=== PATIENT | male | born 1985 | race American Indian/Alaskan Native ===

== ENCOUNTER 2018-08-21 08:14 | Inpatient (IN) | payer SELFPAY ==
[2018-08-21] MEDS ORDERED: MORPHINE IV ONE ×2 (08:43→10:09)
[2018-08-21] MEDS ORDERED: NACL 0.9% 1000 ML 1,000 ML IV ONE ×2 (08:43→11:45)
--- NOTE | 2018-08-21 08:55 | Emergency Department Report ---
HPI - General Chief Complaint: Abdominal Pain Time Seen by Provider: 08/21/18 08:32 - HPI HPI: 32-year-old -[place] male presents to the emergency department with complaint of lower abdominal pain and testicular pain, worse on the right. The symptoms began last night but went away, but the patient woke up this morning and the symptoms have returned and intensified. He says it feels like he has been kicked in the testicles, but he does deny any trauma or injury. He also noticed a significant amount of blood in the urine and says that his stream has also been affected. He denies any fever, back pain, diarrhea or constipation. He denies any past medical history. He has not taken anything for his symptoms prior to presentation today. ED Past Medical Hx - Past Medical History Previous Medical History?: No - Surgical History Past Surgical History?: No - Social History Smoking Status: Current Every Day Smoker - Medications Home Medications: Home Medications Medication Instructions Recorded Confirmed Last Taken Type No Known Home Medications [No 08/21/18 08/21/18 Unknown History Reported Home Medications] ED Review of Systems ROS: Stated complaint: STOMACH PAIN Other details as noted in HPI Comment: All other systems reviewed and negative Constitutional: denies: chills, fever Eyes: denies: eye pain, vision change ENT: denies: ear pain, throat pain Respiratory: denies: cough, shortness of breath Cardiovascular: denies: chest pain, palpitations Gastrointestinal: abdominal pain. denies: diarrhea, constipation Genitourinary: hematuria, testicular pain Musculoskeletal: denies: back pain, arthralgia Skin: denies: rash, lesions Neurological: denies: headache, weakness Physical Exam - Physical Exam Vital Signs: Vital Signs 08/21/18 08:16 Temperature 98 F Pulse Rate 83 Respiratory 18 Rate Blood Pressure 133/90 O2 Sat by Pulse 98 Oximetry Physical Exam: GENERAL: The patient is well-developed well-nourished. HENT: Normocephalic. Atraumatic. Patient has moist mucous membranes. EYES: Extraocular motions are intact. Pupils equal reactive to light bilaterally. NECK: Supple. Trachea is midline. CHEST/LUNGS: Clear to auscultation. There is no respiratory distress noted. HEART/CARDIOVASCULAR: Regular. There is no tachycardia. There is no murmur. ABDOMEN: Abdomen is soft. Lower abdominal tenderness to palpation. No guarding. Patient has normal bowel sounds. There is no abdominal distention. SKIN: Skin is warm and dry. NEURO: The patient is awake, alert, and oriented. The patient is cooperative. The patient has no focal neurologic deficits. The patient has normal speech. MUSCULOSKELETAL: There is no tenderness or deformity. There is no limitation range of motion. There is no evidence of acute injury. : There is right-sided testicular tenderness to palpation. No palpable hernias. ED Course Vital Signs 08/21/18 08:16 Temperature 98 F Pulse Rate 83 Respiratory 18 Rate Blood Pressure 133/90 O2 Sat by Pulse 98 Oximetry ED Medical Decision Making - Lab Data Result diagrams: 08/21/18 08:36 08/21/18 08:36 - Radiology Data Radiology results: report reviewed Scrotal Ultrasound HISTORY: testicular pain. TECHNIQUE: Grayscale and color Doppler imaging performed. COMPARISON: None FINDINGS: Both testicles are normal in size with normal blood flow. There is a 7 mm extratesticular cyst on the right which demonstrates smooth margins and is anechoic with no internal blood flow. No hydrocele or varicocele identified. IMPRESSION: Small extratesticular cyst on the right. Otherwise unremarkable exam. CT ABDOMEN AND PELVIS WITH CONTRAST HISTORY: Acute generalized abdominal pain, radiating to testicle, hematuria. COMPARISON: Testicular ultrasound from today TECHNIQUE: CT images of the abdomen and pelvis were obtained following administ ration of intravenous contrast. All CT scans at this location are performed using CT dose reduction for ALARA by means of automated exposure control. CONTRAST: 100 ml of intravenous contrast administered. FINDINGS: Lungs/bones: There is minimal left basilar atelectasis with otherwise clear ivan ngs. No acute osseous abnormality or significant degenerative change. Abdomen/pelvis: There is a tiny cyst in the dome of the liver. The liver otherwise appears enlarged but unremarkable. Gallbladder is absent. There is slight intrahepatic biliary ductal prominence which can be seen postcholecystectomy. The spleen with splenule, pancreas, adrenals, kidneys, and proximal GI tract appear unremarkable. Urinary bladder and prostate are unremarkable except for dystrophic calcification in the prostate and small phleboliths in the pelvis. No pelvic free fluid. The appendix and terminal ileum appear normal. The descending colon has a collapsed appearance with no significant surrounding inflammatory stranding identified. IMPRESSION: 1. No acute abnormality identified. No radiopaque urinary stone disease. 2. Incidental findings as above. - Medical Decision Making This patient presents to the emergency department with a complaint of pain to the testicles, worse on the right, as well as the lower abdomen. He also complained of some hematuria. Urinalysis does confirm significant hematuria and he may have a very mild urinary tract infection with 18 white blood cells. Otherwise his blood work and labs have been unremarkable. A testicular ultrasound was done that does not show any signs of any torsion or any significant abnormality other than a small right testicular cyst. A CT scan of the abdomen and pelvis with IV contrast was also done that does not show any acute pelvic or abdominal pathology. The patient received 2 rounds of morphine, Toradol, IV fluid resuscitation and has not had any improvement in his discomfort. The patient is tearful and complaining of the patient will be admitted to the hospital for intractable abdominal pain and has been accepted for admission by the hospitalist, Dr. Hrone. - Differential Diagnosis testicular torsion, nephrolithiasis, pyelonephritis, colitis, diverticuliti Critical Care Time: No Critical care attestation.: If time is entered above; I have spent that time in minutes in the direct care of this critically ill patient, excluding procedure time. ED Disposition Clinical Impression: Intractable abdominal pain, Testicular pain, right Hematuria Qualifiers: Hematuria type: gross Qualified Code(s): R31.0 - Gross hematuria UTI (urinary tract infection) Qualifiers: Urinary tract infection type: acute cystitis Hematuria presence: with hematuria Qualified Code(s): N30.01 - Acute cystitis with hematuria Disposition: OP ADMIT IP TO THIS HOSP Is pt being admited?: Yes Condition: Fair Time of Disposition: 15:04
[2018-08-21 08:59] LABS: Hemoglobin 12.6 gm/dl (11.8-15.2); Mean Corpuscular HGB Conc 32 % (32-34); Mean Corpuscular Volume 91 fl (84-94); Platelet Count 218 K/mm3 (140-440); Red Blood Count 4.27 M/mm3 (3.65-5.03); Red Cell Distribution Width 13.7 % (13.2-15.2)
[2018-08-21 09:08] LABS: Bilirubin,Urine NEG (Negative); Blood,Urine MOD (Negative); Color,Urine Red (Yellow); Urobilinogen,Urine < 2.0 mg/dL (<2.0)
[2018-08-21 09:24] LABS: Alanine Aminotransferase 12 units/L (7-56); Albumin 4.1 g/dL (3.9-5); BUN/Creatinine Ratio 9; Blood Urea Nitrogen 10 mg/dL (9-20); Calcium 9.2 mg/dL (8.4-10.2); Hemolysis Index 9
[2018-08-21 09:25] LABS: RBC,Urine > 182.0 /HPF (0.0-6.0)
--- NOTE | 2018-08-21 10:07 | Ultrasound Report ---
Scrotal Ultrasound HISTORY: testicular pain. TECHNIQUE: Grayscale and color Doppler imaging performed. COMPARISON: None FINDINGS: Both testicles are normal in size with normal blood flow. There is a 7 mm extratesticular cyst on the right which demonstrates smooth margins and is anechoic with no internal blood flow. No h ydrocele or varicocele identified. IMPRESSION: Small extratesticular cyst on the right. Otherwise unremarkable exam. Signer Name: Reji Sanford MD Signed: 08/21/2018 10:03 AM Workstation Name: [id number]
[2018-08-21] MEDS ORDERED: ZOFRAN ONE (10:15)
[2018-08-21] MEDS ORDERED: ZOFRAN IV ONE (10:19)
[2018-08-21] MEDS ORDERED: TORADOL IV ONE (10:42)
--- NOTE | 2018-08-21 10:56 | Cat Scan Report ---
CT ABDOMEN AND PELVIS WITH CONTRAST HISTORY: Acute generalized abdominal pain, radiating to testicle, hematuria. COMPARISON: Testicular ultrasound from today TECHNIQUE: CT images of the abdomen and pelvis were obtained following administration of intravenous contrast. All CT scans at this location are performed using CT dose reduction for ALARA by means of automated exposure control. CONTRAST: 100 ml of intravenous contrast administered. FINDINGS: Lungs/bones: There is minimal left basilar atelectasis with otherwise clear lungs. No acute osseous abnormality or significant degenerative change. Abdomen/pelvis: There is a tiny cyst in the dome of the liver. The liver otherwise appears enlarged but unremarkable. Gallbladder is absent. There is slight intrahepatic biliary ductal prominence which can be seen postcholecystectomy. The spleen with splenule, pancreas, adrenals, kidneys, and proximal GI tract appear unremarkable. Urinary bladder and prostate are unremarkable except for dystrophic calcification in the prostate and small phleboliths in the pelvis. No pelvic free fluid. The appendix and terminal ileum appear normal . The descending colon has a collapsed appearance with no significant surrounding inflammatory strand ing identified. IMPRESSION: 1. No acute abnormality identified. No radiopaque urinary stone disease. 2. Incidental findings as above. Signer Name: Reji Sanford MD Signed: 08/21/2018 10:52 AM Workstation Name: [id number]
[2018-08-21 11:02] LABS: Platelet Estimate Consistent w Auto; RBC Morphology Normal; Total Cells Counted 100
[2018-08-21] MEDS ORDERED: ROCEPHIN/NS 1 GM/50 ML 1 GM/50 ML BAG IV ONE (11:32)
[2018-08-21] MEDS ORDERED: ZOFRAN IV PRN ×2 (13:31→22:18)
[2018-08-21] MEDS: DILAUDID IV PRN ×3 (14:13→21:49)
--- NOTE | 2018-08-21 22:11 | History and Physical Report ---
History of Present Illness Date of examination: 08/21/18 Date of admission: 08/21/18 11:32 Chief complaint: Severe abdominal pain and right testicle pain for 1 day History of present illness: 32-year-old -[place] male with no significant past medical history presents with a severe lower abdominal pain and right testicular pain since yesterday. Pain is intermittent and sharp. He feels as if somebody K Jose testicles. No trauma. 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 No trauma. No fever or chills. Patient also noticed the blood in the urine and decreased stream of urine. Pain is 10 on a scale of 1-10. Sharp in nature. No exacerbating or relieving factors. Past Medical History Previous Medical History?: No Surgical History Past Surgical History?: No Social History Smoking Status: Current Every Day Smoker Family history Htn - Medications Home Medications: Home Medications Medication Instructions Recorded Confirmed Last Taken Type No Known Home Medications [No 08/21/18 08/21/18 Unknown History Reported Home Medications] Review of Systems ROS: Stated complaint: STOMACH PAIN Other details as noted in HPI Comment: All other systems reviewed and negative Constitutional: denies: chills, fever Eyes: denies: eye pain, vision change ENT: denies: ear pain, throat pain Respiratory: denies: cough, shortness of breath Cardiovascular: denies: chest pain, palpitations Gastrointestinal: abdominal pain. denies: diarrhea, constipation Genitourinary: hematuria, testicular pain Musculoskeletal: denies: back pain, arthralgia Skin: denies: rash, lesions Neurological: denies: headache, weakness Medications and Allergies Allergies Allergy/AdvReac Type Severity Reaction Status Date / Time No Known Allergies Allergy Unverified 08/21/18 08:15 Home Medications Medication Instructions Recorded Confirmed Last Taken Type No Known Home Medications [No 08/21/18 08/21/18 Unknown History Reported Home Medications] Active Meds: Active Medications Hydromorphone HCl (Dilaudid) 1 mg IV Q3H PRN PRN Reason: Pain , Severe (7-10) Last Admin: 08/21/18 21:49 Dose: 1 mg Documented by: Ondansetron HCl (Zofran) 4 mg IV Q3H PRN PRN Reason: Nausea And Vomiting Exam - Constitutional Vitals: Temp Pulse Resp BP Pulse Ox 98.7 F 78 20 127/86 97 07/06/19 12:08 08/21/18 12:08 08/21/18 12:08 08/21/18 12:08 08/21/18 14:29 General appearance: Present: no acute distress, well-nourished - EENT Eyes: Present: PERRL ENT: hearing intact, clear oral mucosa - Neck Neck: Present: supple, normal ROM - Respiratory Respiratory effort: normal Respiratory: bilateral: CTA - Cardiovascular Heart rate: 90 Rhythm: regular Heart Sounds: Present: S1 & S2. Absent: rub, click - Extremities Extremities: no ischemia, pulses intact, pulses symmetrical, No edema Peripheral Pulses: within normal limits - Abdominal General gastrointestinal: Present: soft, non-tender, non-distended, normal bowel sounds Male genitourinary: Present: normal - Integumentary Integumentary: Present: clear, warm, dry - Musculoskeletal Musculoskeletal: gait normal, strength equal bilaterally - Psychiatric Psychiatric: appropriate mood/affect, intact judgment & insight - Neurologic Neurologic: CNII-XII intact, moves all extremities - Allied Health Allied health notes reviewed: nursing, case management Results - Labs CBC & Chem 7: 08/21/18 08:36 08/21/18 08:36 Labs: Laboratory Last Values WBC 3.4 K/mm3 (4.5-11.0) L 08/21/18 08:36 RBC 4.27 M/mm3 (3.65-5.03) 08/21/18 08:36 Hgb 12.6 gm/dl (11.8-15.2) 08/21/18 08:36 Hct 39.0 % (35.5-45.6) 08/21/18 08:36 MCV 91 fl (84-94) 08/21/18 08:36 MCH 30 pg (28-32) 08/21/18 08:36 MCHC 32 % (32-34) 08/21/18 08:36 RDW 13.7 % (13.2-15.2) 08/21/18 08:36 Plt Count 218 K/mm3 (140-440) 08/21/18 08:36 Add Manual Diff Complete 08/21/18 08:36 Total Counted 100 08/21/18 08:36 Seg Neuts % (Manual) 39.0 % (40.0-70.0) L 08/21/18 08:36 0 % 08/21/18 08:36 48.0 % (13.4-35.0) H 08/21/18 08:36 Reactive Lymphs % (Man) 0 % 08/21/18 08:36 5.0 % (0.0-7.3) 08/21/18 08:36 7.0 % (0.0-4.3) H 08/21/18 08:36 1.0 % (0.0-1.8) 08/21/18 08:36 0 % 08/21/18 08:36 0 % 08/21/18 08:36 0 % 08/21/18 08:36 0 % 08/21/18 08:36 Nucleated RBC % Not Reportable 08/21/18 08:36 Seg Neutrophils # Man 1.3 K/mm3 (1.8-7.7) L 08/21/18 08:36 Band Neutrophils # 0.0 K/mm3 08/21/18 08:36 1.6 K/mm3 (1.2-5.4) 08/21/18 08:36 Abs React Lymphs (Man) 0.0 K/mm3 08/21/18 08:36 0.2 K/mm3 (0.0-0.8) 08/21/18 08:36 0.2 K/mm3 (0.0-0.4) 08/21/18 08:36 0.0 K/mm3 (0.0-0.1) 08/21/18 08:36 0.0 K/mm3 08/21/18 08:36 0.0 K/mm3 08/21/18 08:36 0.0 K/mm3 08/21/18 08:36 Blast Cells # 0.0 K/mm3 08/21/18 08:36 WBC Morphology Not Reportable 08/21/18 08:36 Hypersegmented Neuts Not Reportable 08/21/18 08:36 Hyposegmented Neuts Not Reportable 08/21/18 08:36 Hypogranular Neuts Not Reportable 08/21/18 08:36 Not Reportable 08/21/18 08:36 Not Reportable 08/21/18 08:36 Not Reportable 08/21/18 08:36 Not Reportable 08/21/18 08:36 Not Reportable 08/21/18 08:36 Not Reportable 08/21/18 08:36 Consistent w auto 08/21/18 08:36 Not Reportable 08/21/18 08:36 Plt Clumps, EDTA Not Reportable 08/21/18 08:36 Not Reportable 08/21/18 08:36 Not Reportable 08/21/18 08:36 Not Reportable 08/21/18 08:36 Plt Morphology Comment Not Reportable 08/21/18 08:36 RBC Morphology Normal 08/21/18 08:36 Dimorphic RBCs Not Reportable 08/21/18 08:36 Not Reportable 08/21/18 08:36 Not Reportable 08/21/18 08:36 Not Reportable 08/21/18 08:36 Not Reportable 08/21/18 08:36 Not Reportable 08/21/18 08:36 Not Reportable 08/21/18 08:36 Not Reportable 08/21/18 08:36 Not Reportable 08/21/18 08:36 Not Reportable 08/21/18 08:36 Not Reportable 08/21/18 08:36 Not Reportable 08/21/18 08:36 Not Reportable 08/21/18 08:36 Not Reportable 08/21/18 08:36 Not Reportable 08/21/18 08:36 Not Reportable 08/21/18 08:36 Not Reportable 08/21/18 08:36 Not Reportable 08/21/18 08:36 Not Reportable 08/21/18 08:36 Not Reportable 08/21/18 08:36 Acanthocytes (Spur) Not Reportable 08/21/18 08:36 Rouleaux Not Reportable 08/21/18 08:36 Not Reportable 08/21/18 08:36 Not Reportable 08/21/18 08:36 Not Reportable 08/21/18 08:36 Not Reportable 08/21/18 08:36 Hem Pathologist Commnt No 08/21/18 08:36 Sodium 137 mmol/L (137-145) 08/21/18 08:36 Potassium 3.9 mmol/L (3.6-5.0) 08/21/18 08:36 Chloride 102.5 mmol/L (98-107) 08/21/18 08:36 Carbon Dioxide 25 mmol/L (22-30) 08/21/18 08:36 13 mmol/L 08/21/18 08:36 BUN 10 mg/dL (9-20) 08/21/18 08:36 1.1 mg/dL (0.8-1.5) 08/21/18 08:36 Estimated GFR > 60 ml/min 08/21/18 08:36 9 % 08/21/18 08:36 Glucose 93 mg/dL (75-100) 08/21/18 08:36 Calcium 9.2 mg/dL (8.4-10.2) 08/21/18 08:36 0.30 mg/dL (0.1-1.2) 08/21/18 08:36 AST 18 units/L (5-40) 08/21/18 08:36 ALT 12 units/L (7-56) 08/21/18 08:36 96 units/L (35-129) 08/21/18 08:36 6.8 g/dL (6.3-8.2) 08/21/18 08:36 4.1 g/dL (3.9-5) 08/21/18 08:36 1.5 % 08/21/18 08:36 20 units/L (13-60) 08/21/18 08:36 Red (Yellow) 08/21/18 08:31 Cloudy (Clear) 08/21/18 08:31 7.0 (5.0-7.0) 08/21/18 08:31 Ur Specific [place] 1.011 (1.003-1.030) 08/21/18 08:31 100 mg/dl mg/dL (Negative) 08/21/18 08:31 Neg mg/dL (Negative) 08/21/18 08:31 Neg mg/dL (Negative) 08/21/18 08:31 Mod (Negative) 08/21/18 08:31 Pos (Negative) 08/21/18 08:31 Neg (Negative) 08/21/18 08:31 < 2.0 mg/dL (<2.0) 08/21/18 08:31 Ur Leukocyte Esterase Neg (Negative) 08/21/18 08:31 18.0 /HPF (0.0-6.0) H 08/21/18 08:31 > 182.0 /HPF (0.0-6.0) 08/21/18 08:31 Short CBC 08/21/18 Range/Units 08:36 WBC 3.4 L (4.5-11.0) K/mm3 Hgb 12.6 (11.8-15.2) gm/dl Hct 39.0 (35.5-45.6) % Plt Count 218 (140-440) K/mm3 BMP 08/21/18 08:36 Sodium 137 Potassium 3.9 Chloride 102.5 Carbon Dioxide 25 BUN 10 Creatinine 1.1 Glucose 93 Calcium 9.2 Liver Function 08/21/18 Range/Units 08:36 Total Bilirubin 0.30 (0.1-1.2) mg/dL AST 18 (5-40) units/L ALT 12 (7-56) units/L Alkaline Phosphatase 96 (35-129) units/L Albumin 4.1 (3.9-5) g/dL Urine 08/21/18 Range/Units 08:31 Urine Color Red (Yellow) Urine pH 7.0 (5.0-7.0) Ur Specific [place] 1.011 (1.003-1.030) Urine Protein 100 mg/dl (Negative) mg/dL Urine Glucose (UA) Neg (Negative) mg/dL - Imaging and Cardiology CT scan - abdomen: report reviewed Imaging and Cardiology: Testicular ultrasound IMPRESSION: Small extratesticular cyst on the right. Otherwise unremarkable exam. Abdominal CAT scan Urinary bladder and prostate are unremarkable except for dystrophic calcification in the prostate and small phleboliths in the pelvis. No pelvic free fluid. The appendix and terminal ileum appear normal. The descending colon has a collapsed appearance with no significant surrounding inflammatory stranding identified. IMPRESSION: 1. No acute abnormality identified. No radiopaque urinary stone disease. 2. Incidental findings as above. Assessment and Plan Advance Directives: Yes (full code) VTE prophylaxis?: Chemical Plan of care discussed with patient/family: Yes - Patient Problems (1) Acute epididymitis Current Visit: Yes Status: Acute Plan to address problem: Possible epididymitis even the ultrasound is negative Testicle is tender to touch IV Rocephin initiated IV Dilaudid initiated Urology consult requested (2) Hematuria Current Visit: Yes Status: Acute Qualifiers: Hematuria type: unspecified type Qualified Code(s): R31.9 - Hematuria, unspecified Plan to address problem: Possibly secondary to Epididymitis (3) DVT prophylaxis Current Visit: Yes Status: Acute Plan to address problem: On SCD's and GI prophlaxos (4) UTI (urinary tract infection) Current Visit: Yes Status: Acute Qualifiers: Urinary tract infection type: acute cystitis Hematuria presence: with hematuria Qualified Code(s): N30.01 - Acute cystitis with hematuria Plan to address problem: IV Rocephin initiated
[2018-08-21] MEDS ORDERED: PERCOCET 5/325 PO PRN (22:18)
[2018-08-21] MEDS ORDERED: SODIUM CHLORIDE FLUSH SYRINGE 10 ML IV PRN (22:18)
[2018-08-21] MEDS ORDERED: TYLENOL PO PRN (22:18)
[2018-08-22] MEDS: PEPCID IV SCH ×3 (00:14→22:07)
[2018-08-22] MEDS: NACL 0.9% 1000 ML 1,000 ML IV SCH ×3 (00:15→22:11)
[2018-08-22] MEDS: DILAUDID IV PRN ×7 (01:06→22:07)
[2018-08-22 05:57] LABS: Hematocrit 36.1 % (35.5-45.6); Hemoglobin 11.9 gm/dl (11.8-15.2); Mean Corpuscular HGB Conc 33 % (32-34); Mean Corpuscular Volume 90 fl (84-94); Platelet Count 195 K/mm3 (140-440); Red Blood Count 4.02 M/mm3 (3.65-5.03); Red Cell Distribution Width 13.4 % (13.2-15.2)
[2018-08-22 06:17] LABS: Alanine Aminotransferase 109 units/L (7-56); Albumin 3.9 g/dL (3.9-5); BUN/Creatinine Ratio 7; Blood Urea Nitrogen 6 mg/dL (9-20); Calcium 8.6 mg/dL (8.4-10.2); Hemolysis Index 6
[2018-08-22 07:51] LABS: Basophils % (Manual) 0 % (0.0-1.8); Platelet Estimate Consistent w Auto; RBC Morphology Normal; Total Cells Counted 100
[2018-08-22] MEDS: SODIUM CHLORIDE FLUSH SYRINGE 10 ML IV SCH ×2 (08:59→22:07)
[2018-08-22] MEDS: ROCEPHIN/NS 2 GM/100 ML 2 GM/100 ML BAG IV SCH (08:59)
--- NOTE | 2018-08-22 11:37 | Progress Note ---
Assessment and Plan Assessment and plan: 32-year-old man who presents with acute testicular pain and hematuria Testicular pain/hematuria CT abdomen and pelvis is negative, Testicular ultrasound only shows a small extratesticular cyst on the right, the cyst has smooth margins it is anechoic with no internal blood flow. Testicular blood flow is intact -Urology consult pending Check gonorrhea and chlamydia, continue antibiotics -UA result shows a lot of hematuria, but not impressive for UTI -dw Dr Crespo, urology DVT prophylaxis early ambulation History Interval history: Continue to complain of testicular pain and gross hematuria Review of systems Constitutional: No fevers, no malaise, no joint pains CVS: No chest pain, no orthopnea, no dyspnea on exertion, no pedal edema GI: No abdominal pain, no diarrhea, no vomiting, no constipation Respiratory: no wheezing, no coughing Hospitalist Physical - Physical exam Narrative exam: General.: Appears well, no distress, nontoxic HEENT: Moist mucous membranes, extraocular muscles intact, no lymphadenopathy Neck: supple Cardiac: S1-S2 heard Lungs: clear to auscultation bilaterally Abdomen: soft , nontender, nondistended, bowel sounds positive Extremities: no edema clubbing or cyanosis Skin: no rash or lesions Neurologic: no gross focal deficits Psych: calm, and cooperative - Constitutional Vitals: Temp Pulse Resp BP Pulse Ox 98.4 F 53 L 18 133/81 97 08/22/18 06:27 08/22/18 06:27 08/22/18 06:27 08/22/18 06:27 08/22/18 06:27 General appearance: Present: no acute distress, well-nourished Results - Labs CBC & Chem 7: 08/22/18 05:09 08/22/18 05:09 Labs: Laboratory Last Values WBC 2.4 K/mm3 (4.5-11.0) L 08/22/18 05:09 RBC 4.02 M/mm3 (3.65-5.03) 08/22/18 05:09 Hgb 11.9 gm/dl (11.8-15.2) 08/22/18 05:09 Hct 36.1 % (35.5-45.6) 08/22/18 05:09 MCV 90 fl (84-94) 08/22/18 05:09 MCH 30 pg (28-32) 08/22/18 05:09 MCHC 33 % (32-34) 08/22/18 05:09 RDW 13.4 % (13.2-15.2) 08/22/18 05:09 Plt Count 195 K/mm3 (140-440) 08/22/18 05:09 Add Manual Diff Complete 08/22/18 05:09 Total Counted 100 08/22/18 05:09 Seg Neuts % (Manual) 53.0 % (40.0-70.0) 08/22/18 05:09 0 % 08/22/18 05:09 39.0 % (13.4-35.0) H 08/22/18 05:09 Reactive Lymphs % (Man) 0 % 08/22/18 05:09 5.0 % (0.0-7.3) 08/22/18 05:09 3.0 % (0.0-4.3) 08/22/18 05:09 0 % (0.0-1.8) 08/22/18 05:09 0 % 08/22/18 05:09 0 % 08/22/18 05:09 0 % 08/22/18 05:09 0 % 08/22/18 05:09 Nucleated RBC % Not Reportable 08/22/18 05:09 Seg Neutrophils # Man 1.3 K/mm3 (1.8-7.7) L 08/22/18 05:09 Band Neutrophils # 0.0 K/mm3 08/22/18 05:09 0.9 K/mm3 (1.2-5.4) L 08/22/18 05:09 Abs React Lymphs (Man) 0.0 K/mm3 08/22/18 05:09 0.1 K/mm3 (0.0-0.8) 08/22/18 05:09 0.1 K/mm3 (0.0-0.4) 08/22/18 05:09 0.0 K/mm3 (0.0-0.1) 08/22/18 05:09 0.0 K/mm3 08/22/18 05:09 0.0 K/mm3 08/22/18 05:09 0.0 K/mm3 08/22/18 05:09 Blast Cells # 0.0 K/mm3 08/22/18 05:09 WBC Morphology Not Reportable 08/22/18 05:09 Hypersegmented Neuts Not Reportable 08/22/18 05:09 Hyposegmented Neuts Not Reportable 08/22/18 05:09 Hypogranular Neuts Not Reportable 08/22/18 05:09 Not Reportable 08/22/18 05:09 Not Reportable 08/22/18 05:09 Not Reportable 08/22/18 05:09 Not Reportable 08/22/18 05:09 Not Reportable 08/22/18 05:09 Not Reportable 08/22/18 05:09 Consistent w auto 08/22/18 05:09 Not Reportable 08/22/18 05:09 Plt Clumps, EDTA Not Reportable 08/22/18 05:09 Not Reportable 08/22/18 05:09 Not Reportable 08/22/18 05:09 Not Reportable 08/22/18 05:09 Plt Morphology Comment Not Reportable 08/22/18 05:09 RBC Morphology Normal 08/22/18 05:09 Dimorphic RBCs Not Reportable 08/22/18 05:09 Not Reportable 08/22/18 05:09 Not Reportable 08/22/18 05:09 Not Reportable 08/22/18 05:09 Not Reportable 08/22/18 05:09 Not Reportable 08/22/18 05:09 Not Reportable 08/22/18 05:09 Not Reportable 08/22/18 05:09 Not Reportable 08/22/18 05:09 Not Reportable 08/22/18 05:09 Not Reportable 08/22/18 05:09 Not Reportable 08/22/18 05:09 Not Reportable 08/22/18 05:09 Not Reportable 08/22/18 05:09 Not Reportable 08/22/18 05:09 Not Reportable 08/22/18 05:09 Not Reportable 08/22/18 05:09 Not Reportable 08/22/18 05:09 Not Reportable 08/22/18 05:09 Not Reportable 08/22/18 05:09 Acanthocytes (Spur) Not Reportable 08/22/18 05:09 Rouleaux Not Reportable 08/22/18 05:09 Not Reportable 08/22/18 05:09 Not Reportable 08/22/18 05:09 Not Reportable 08/22/18 05:09 Not Reportable 08/22/18 05:09 Hem Pathologist Commnt No 08/22/18 05:09 Sodium 139 mmol/L (137-145) 08/22/18 05:09 Potassium 3.5 mmol/L (3.6-5.0) L 08/22/18 05:09 Chloride 103.4 mmol/L (98-107) 08/22/18 05:09 Carbon Dioxide 24 mmol/L (22-30) 08/22/18 05:09 15 mmol/L 08/22/18 05:09 BUN 6 mg/dL (9-20) L 08/22/18 05:09 0.9 mg/dL (0.8-1.5) 08/22/18 05:09 Estimated GFR > 60 ml/min 08/22/18 05:09 7 % 08/22/18 05:09 Glucose 89 mg/dL (75-100) 08/22/18 05:09 4.2 % (4-6) 08/21/18 08:36 Calcium 8.6 mg/dL (8.4-10.2) 08/22/18 05:09 0.40 mg/dL (0.1-1.2) 08/22/18 05:09 AST 144 units/L (5-40) H 08/22/18 05:09 ALT 109 units/L (7-56) H 08/22/18 05:09 140 units/L (35-129) H 08/22/18 05:09 6.2 g/dL (6.3-8.2) L 08/22/18 05:09 3.9 g/dL (3.9-5) 08/22/18 05:09 1.7 % 08/22/18 05:09 20 units/L (13-60) 08/21/18 08:36 Red (Yellow) 08/21/18 08:31 Cloudy (Clear) 08/21/18 08:31 7.0 (5.0-7.0) 08/21/18 08:31 Ur Specific [place] 1.011 (1.003-1.030) 08/21/18 08:31 100 mg/dl mg/dL (Negative) 08/21/18 08:31 Neg mg/dL (Negative) 08/21/18 08:31 Neg mg/dL (Negative) 08/21/18 08:31 Mod (Negative) 08/21/18 08:31 Pos (Negative) 08/21/18 08:31 Neg (Negative) 08/21/18 08:31 < 2.0 mg/dL (<2.0) 08/21/18 08:31 Ur Leukocyte Esterase Neg (Negative) 08/21/18 08:31 18.0 /HPF (0.0-6.0) H 08/21/18 08:31 > 182.0 /HPF (0.0-6.0) 08/21/18 08:31 Active Medications - Current Medications Current Medications: Generic Name Dose Route Start Last Admin Trade Name Freq PRN Reason Stop Dose Admin Acetaminophen 650 mg 08/21/18 22:18 Tylenol PO Q4H PRN Pain MILD(1-3)/Fever >100.5/VELASQUEZ Famotidine 20 mg 08/21/18 23:00 08/22/18 08:59 Pepcid IV 20 mg BID PAUL Administration Hydromorphone HCl 1 mg 08/21/18 13:33 08/22/18 07:39 Dilaudid IV 1 mg Q3H PRN Administration Pain , Severe (7-10) Sodium Chloride 1,000 mls @ 75 mls/hr 08/21/18 23:00 08/22/18 11:02 Nacl 0.9% 1000 Ml IV 75 mls/hr DIRECT PAUL Administration Ceftriaxone Sodium 2 gm in 100 mls @ 200 mls/hr 08/22/18 10:00 08/22/18 08:59 Rocephin/Ns 2 Gm/100 Ml IV 200 mls/hr Q24HR PAUL Administration Protocol Ondansetron HCl 4 mg 08/21/18 22:18 Zofran IV Q8H PRN Nausea And Vomiting Oxycodone/Acetaminophen 1 tab 08/21/18 22:18 08/22/18 10:49 Percocet 5/325 PO 1 tab Q6H PRN Administration Pain, Moderate (4-6) Sodium Chloride 10 ml 08/22/18 10:00 08/22/18 08:59 Sodium Chloride Flush Syringe 10 Ml IV 10 ml BID PAUL Administration Sodium Chloride 10 ml 08/21/18 22:18 Sodium Chloride Flush Syringe 10 Ml IV PRN PRN LINE FLUSH
[2018-08-22] MEDS ORDERED: PERCOCET 5/325 PO PRN (13:28)
[2018-08-23] MEDS: DILAUDID IV PRN ×5 (01:34→20:54)
--- NOTE | 2018-08-23 08:57 | Progress Note ---
Assessment and Plan cannot examine very emotional for cystyo consent dictated Subjective Date of service: 08/23/18 Objective - Constitutional Vitals: Vital Signs - 12hr 08/22/18 08/23/18 08/23/18 23:36 05:51 08:44 Temperature 98.2 F 98.3 F Pulse Rate 55 L 68 Respiratory 18 18 20 Rate Blood Pressure 133/85 122/64 O2 Sat by Pulse 100 94 Oximetry General appearance: Present: mild distress, severe distress - Respiratory Respiratory effort: normal Extremities: no ischemia - Gastrointestinal General gastrointestinal: Present: tender - Labs CBC & Chem 7: 08/22/18 05:09 08/22/18 05:09 Medications & Allergies - Medications Allergies/Adverse Reactions: Allergies No Known Allergies Allergy (Unverified 08/21/18 08:15) Home Medications: Home Medications Medication Instructions Recorded Confirmed Last Taken Type No Known Home Medications [No 08/21/18 08/21/18 Unknown History Reported Home Medications] Active Medications: Generic Name Dose Route Start Last Admin Trade Name Freq PRN Reason Stop Dose Admin Acetaminophen 650 mg 08/21/18 22:18 Tylenol PO Q4H PRN Pain MILD(1-3)/Fever >100.5/VELASQUEZ Famotidine 20 mg 08/21/18 23:00 08/22/18 22:07 Pepcid IV 20 mg BID PAUL Administration Hydromorphone HCl 2 mg 08/22/18 13:28 08/23/18 08:44 Dilaudid IV 2 mg Q3H PRN Administration Pain , Severe (7-10) Sodium Chloride 1,000 mls @ 75 mls/hr 08/21/18 23:00 08/22/18 22:11 Nacl 0.9% 1000 Ml IV 75 mls/hr DIRECT PAUL Administration Ceftriaxone Sodium 2 gm in 100 mls @ 200 mls/hr 08/22/18 10:00 08/22/18 08:59 Rocephin/Ns 2 Gm/100 Ml IV 200 mls/hr Q24HR PAUL Administration Protocol Ondansetron HCl 4 mg 08/21/18 22:18 Zofran IV Q8H PRN Nausea And Vomiting Oxycodone/Acetaminophen 2 tab 08/22/18 13:28 Percocet 5/325 PO Q6H PRN Pain, Moderate (4-6) Sodium Chloride 10 ml 08/22/18 10:00 08/22/18 22:07 Sodium Chloride Flush Syringe 10 Ml IV 10 ml BID PAUL Administration Sodium Chloride 10 ml 08/21/18 22:18 Sodium Chloride Flush Syringe 10 Ml IV PRN PRN LINE FLUSH
[2018-08-23] MEDS: SODIUM CHLORIDE FLUSH SYRINGE 10 ML IV SCH (09:31)
[2018-08-23] MEDS: ROCEPHIN/NS 2 GM/100 ML 2 GM/100 ML BAG IV SCH (09:31)
[2018-08-23] MEDS: PEPCID IV SCH ×2 (09:31→21:00)
--- NOTE | 2018-08-23 09:48 | History and Physical Report ---
HISTORY OF PRESENT ILLNESS: The patient is a gentleman who is complaining of severe pain for 2-3 days. He had initially some gross hematuria, which seemed to get worse, was burgundy colored. He has midepigastric and lower hypogastric pain. Does not localize to either groin. He is very emotional and almost to the point where he is crying and quite afraid. We tried to examine him, we could barely touch him. His scrotum appears to be normal. Testes slightly atrophic bilaterally. He is circumcised and he would not let a full exam take place. He has had a CT scan and a testicular ultrasound, which were normal. I spoke to the doctor yesterday afternoon, there were no acute findings. There was good blood flow. PAST MEDICAL HISTORY: Denied. PAST SURGICAL HISTORY: Negative. SOCIAL HISTORY: Smokes marijuana. FAMILY HISTORY: Noncontributory except for history of some sort of cancer. REVIEW OF SYSTEMS: As mentioned above, mild nausea and hematuria. PHYSICAL EXAMINATION: GENERAL: He is awake. He is somewhat histrionic. He is complaining of pain. ABDOMEN: Soft, nondistended with multiple tattoos throughout his body. GENITALIA: Very hard to examine him, but they appeared to be normal with the minimal exam we could do. He is circumcised. IMPRESSION: No evidence on physical exam of acute injury or process. I did not palpate a hernia, but the exam was limited. He needs cystoscopy. I explained this to him, it may be normal. He denies any history of venereal disease or any infection. We will schedule him for cystoscopy. Informed consent was discussed. He will discuss this with his mother. He was offered he can get a second opinion if he wants, we will try to schedule this if he agrees. JOB# [id number] JAYSHREE/EVERTON
[2018-08-23] MEDS ORDERED: XYLOCAINE MPF 2% ONE (10:00)
[2018-08-23] MEDS ORDERED: SUBLIMAZE ONE (10:59)
[2018-08-23] MEDS ORDERED: DIPRIVAN 10 MG/ML IV ONE (10:59)
[2018-08-23] MEDS ORDERED: VERSED ONE ×2 (11:03→12:55)
[2018-08-23] MEDS ORDERED: KETALAR ONE (11:27)
[2018-08-23] MEDS ORDERED: WATER FOR IRRIG STERILE IR ONE (11:46)
--- NOTE | 2018-08-23 12:08 | Post Operative Note ---
Date of procedure: 08/23/18 Pre-op diagnosis: hematuria pain Post-op diagnosis: same Findings: normal Procedure: cysto rpgs Anesthesia: GETA Surgeon: JOSE LUIS WORLEY Estimated blood loss: none Pathology: list (urine) Specimen disposition: to lab Condition: stable Disposition: PACU
--- NOTE | 2018-08-23 13:14 | Anesthesia Consultation ---
Anesthesia Consult and Med Hx Date of service: 08/23/18 - Airway Anesthetic Teeth Evaluation: Good ROM Head & Neck: Adequate Mental/Hyoid Distance: Adequate Mallampati Class: Class III Intubation Access Assessment: Possibly Difficult - Pulmonary Exam CTA: Yes - Cardiac Exam Cardiac Exam: RRR - Pre-Operative Health Status ASA Pre-Surgery Classification: ASA2 Proposed Anesthetic Plan: General - Pulmonary Hx Smoking: Yes (THC) Hx Respiratory Symptoms: No - Cardiovascular System Hx Hypertension: No Hx Heart Attack/AMI: No - Central Nervous System Hx Seizures: No CVA: No Hx Psychiatric Problems: No - Gastrointestinal Hx Gastroesophageal Reflux Disease: No - Endocrine Hx Renal Disease: No Hx Liver Disease: No Hx Insulin Dependent Diabetes: No Hx Non-Insulin Dependent Diabetes: No Hx Thyroid Disease: No - Hematic Hx Anemia: No - Other Systems Hx Obesity: No - Additional Comments Anesthesia Medical History Comments: No hx anesthetic complications. Patient significantly anxious prior to arrival to OR.
[2018-08-23] MEDS ORDERED: DILAUDID IV PRN (13:15)
--- NOTE | 2018-08-23 13:15 | Anesthesia Day of Surgery ---
Anesthesia Day of Surgery - Day of Surgery Patient Examined: Yes Patient H&P Reviewed: Yes Patient is NPO: Yes
[2018-08-23] MEDS ORDERED: DILAUDID ONE (13:16)
--- NOTE | 2018-08-23 13:19 | Operative Report ---
PREOPERATIVE DIAGNOSES: Hematuria and severe scrotal pain. POSTOPERATIVE DIAGNOSIS: No acute findings. PROCEDURE: Cystoscopy, retrograde, urine for cytology. SURGEON: Delon Serrano MD ANESTHESIA: General. FINDINGS: This is a gentleman who has severe hypogastric and epigastric pain. CT scan and ultrasound of the scrotum were normal. He would not let me examine him. He now presents for cystoscopy with discolored urine. DESCRIPTION OF PROCEDURE: The patient was brought to the operating room and placed on the operating table. Following the induction of anesthesia, placed in lithotomy position, prepped and draped in usual sterile fashion. He is a difficult patient. He was somewhat histrionic and anxious. Examination of the scrotum was normal under anesthesia except for mildly atrophic testis. Cystoscopy shows slight narrowing of the mid urethra and membranous urethra with possibly a previous trauma or scar. We were easily able to bypass this with the scope without cutting anything. Prostatic urethra was injected. There was no active bleeding at this point. There was clear efflux from each orifice. Retrograde showed good filling and good drainage. There is phlebolith in the pelvis. The patient tolerated the procedure well. No biopsies were obtained. A catheter was ____ left. He was brought to recovery room in stable condition. JOB# [id number] JAYSHREE/EVERTON
[2018-08-23] MEDS ORDERED: VERSED IV ONE (13:32)
--- NOTE | 2018-08-23 13:36 | Fluoroscopy Report ---
FLUOROSCOPY RETROGRADE UROGRAPHY HISTORY: Hematuria. COMPARISON: CT abdomen pelvis without contrast performed 08/21/2018. FINDINGS: Fluoroscopy was provided by radiology during retrograde urography by the urologist. 8 fluor oscopic images were captured. 0.4 minutes of fluoroscopy time was utilized. The renal collecting systems are within normal limits bilaterally. No evidence for filling defect or abnormal dilatation. TURP was performed per the procedural note. IMPRESSION: Retrograde pyelograms within normal limits. Signer Name: Marquise Menezes Jr, MD Signed: 08/23/2018 1:31 PM Workstation Name: [id number]
--- NOTE | 2018-08-23 15:24 | Progress Note ---
Assessment and Plan Assessment and plan: 32-year-old man who presents with acute testicular pain and hematuria Testicular pain/hematuria CT abdomen and pelvis is negative, Testicular ultrasound only shows a small extratesticular cyst on the right, the cyst has smooth margins it is anechoic with no internal blood flow. Testicular blood flow is intact -Urology consult appreciated, cysto was negative, will send another urine sample today Check gonorrhea and chlamydia, continue antibiotics -UA result shows a lot of hematuria, but not impressive for UTI -dw Dr Crespo, urology DVT prophylaxis early ambulation History Interval history: Continue to complain of testicular pain and gross hematuria Review of systems Constitutional: No fevers, no malaise, no joint pains CVS: No chest pain, no orthopnea, no dyspnea on exertion, no pedal edema GI: No abdominal pain, no diarrhea, no vomiting, no constipation Respiratory: no wheezing, no coughing Hospitalist Physical - Physical exam Narrative exam: General.: Appears well, no distress, nontoxic HEENT: Moist mucous membranes, extraocular muscles intact, no lymphadenopathy Neck: supple Cardiac: S1-S2 heard Lungs: clear to auscultation bilaterally Abdomen: soft , nontender, nondistended, bowel sounds positive Extremities: no edema clubbing or cyanosis Skin: no rash or lesions Neurologic: no gross focal deficits Psych: calm, and cooperative - Constitutional Vitals: Temp Pulse Resp BP Pulse Ox 98.4 F 96 H 16 136/91 100 08/23/18 13:58 08/23/18 13:58 08/23/18 14:01 08/23/18 13:58 08/23/18 13:58 General appearance: Present: mild distress, severe distress Results - Labs CBC & Chem 7: 08/22/18 05:09 08/22/18 05:09 Labs: Laboratory Last Values WBC 2.4 K/mm3 (4.5-11.0) L 08/22/18 05:09 RBC 4.02 M/mm3 (3.65-5.03) 08/22/18 05:09 Hgb 11.9 gm/dl (11.8-15.2) 08/22/18 05:09 Hct 36.1 % (35.5-45.6) 08/22/18 05:09 MCV 90 fl (84-94) 08/22/18 05:09 MCH 30 pg (28-32) 08/22/18 05:09 MCHC 33 % (32-34) 08/22/18 05:09 RDW 13.4 % (13.2-15.2) 08/22/18 05:09 Plt Count 195 K/mm3 (140-440) 08/22/18 05:09 Add Manual Diff Complete 08/22/18 05:09 Total Counted 100 08/22/18 05:09 Seg Neuts % (Manual) 53.0 % (40.0-70.0) 08/22/18 05:09 0 % 08/22/18 05:09 39.0 % (13.4-35.0) H 08/22/18 05:09 Reactive Lymphs % (Man) 0 % 08/22/18 05:09 5.0 % (0.0-7.3) 08/22/18 05:09 3.0 % (0.0-4.3) 08/22/18 05:09 0 % (0.0-1.8) 08/22/18 05:09 0 % 08/22/18 05:09 0 % 08/22/18 05:09 0 % 08/22/18 05:09 0 % 08/22/18 05:09 Nucleated RBC % Not Reportable 08/22/18 05:09 Seg Neutrophils # Man 1.3 K/mm3 (1.8-7.7) L 08/22/18 05:09 Band Neutrophils # 0.0 K/mm3 08/22/18 05:09 0.9 K/mm3 (1.2-5.4) L 08/22/18 05:09 Abs React Lymphs (Man) 0.0 K/mm3 08/22/18 05:09 0.1 K/mm3 (0.0-0.8) 08/22/18 05:09 0.1 K/mm3 (0.0-0.4) 08/22/18 05:09 0.0 K/mm3 (0.0-0.1) 08/22/18 05:09 0.0 K/mm3 08/22/18 05:09 0.0 K/mm3 08/22/18 05:09 0.0 K/mm3 08/22/18 05:09 Blast Cells # 0.0 K/mm3 08/22/18 05:09 WBC Morphology Not Reportable 08/22/18 05:09 Hypersegmented Neuts Not Reportable 08/22/18 05:09 Hyposegmented Neuts Not Reportable 08/22/18 05:09 Hypogranular Neuts Not Reportable 08/22/18 05:09 Not Reportable 08/22/18 05:09 Not Reportable 08/22/18 05:09 Not Reportable 08/22/18 05:09 Not Reportable 08/22/18 05:09 Not Reportable 08/22/18 05:09 Not Reportable 08/22/18 05:09 Consistent w auto 08/22/18 05:09 Not Reportable 08/22/18 05:09 Plt Clumps, EDTA Not Reportable 08/22/18 05:09 Not Reportable 08/22/18 05:09 Not Reportable 08/22/18 05:09 Not Reportable 08/22/18 05:09 Plt Morphology Comment Not Reportable 08/22/18 05:09 RBC Morphology Normal 08/22/18 05:09 Dimorphic RBCs Not Reportable 08/22/18 05:09 Not Reportable 08/22/18 05:09 Not Reportable 08/22/18 05:09 Not Reportable 08/22/18 05:09 Not Reportable 08/22/18 05:09 Not Reportable 08/22/18 05:09 Not Reportable 08/22/18 05:09 Not Reportable 08/22/18 05:09 Not Reportable 08/22/18 05:09 Not Reportable 08/22/18 05:09 Not Reportable 08/22/18 05:09 Not Reportable 08/22/18 05:09 Not Reportable 08/22/18 05:09 Not Reportable 08/22/18 05:09 Not Reportable 08/22/18 05:09 Not Reportable 08/22/18 05:09 Not Reportable 08/22/18 05:09 Not Reportable 08/22/18 05:09 Not Reportable 08/22/18 05:09 Not Reportable 08/22/18 05:09 Acanthocytes (Spur) Not Reportable 08/22/18 05:09 Rouleaux Not Reportable 08/22/18 05:09 Not Reportable 08/22/18 05:09 Not Reportable 08/22/18 05:09 Not Reportable 08/22/18 05:09 Negative (Negtaive) 08/23/18 14:08 Not Reportable 08/22/18 05:09 Hem Pathologist Commnt No 08/22/18 05:09 Sodium 139 mmol/L (137-145) 08/22/18 05:09 Potassium 3.5 mmol/L (3.6-5.0) L 08/22/18 05:09 Chloride 103.4 mmol/L (98-107) 08/22/18 05:09 Carbon Dioxide 24 mmol/L (22-30) 08/22/18 05:09 15 mmol/L 08/22/18 05:09 BUN 6 mg/dL (9-20) L 08/22/18 05:09 0.9 mg/dL (0.8-1.5) 08/22/18 05:09 Estimated GFR > 60 ml/min 08/22/18 05:09 7 % 08/22/18 05:09 Glucose 89 mg/dL (75-100) 08/22/18 05:09 4.2 % (4-6) 08/21/18 08:36 Calcium 8.6 mg/dL (8.4-10.2) 08/22/18 05:09 0.40 mg/dL (0.1-1.2) 08/22/18 05:09 AST 144 units/L (5-40) H 08/22/18 05:09 ALT 109 units/L (7-56) H 08/22/18 05:09 140 units/L (35-129) H 08/22/18 05:09 6.2 g/dL (6.3-8.2) L 08/22/18 05:09 3.9 g/dL (3.9-5) 08/22/18 05:09 1.7 % 08/22/18 05:09 20 units/L (13-60) 08/21/18 08:36 Red (Yellow) 08/21/18 08:31 Cloudy (Clear) 08/21/18 08:31 7.0 (5.0-7.0) 08/21/18 08:31 Ur Specific [place] 1.011 (1.003-1.030) 08/21/18 08:31 100 mg/dl mg/dL (Negative) 08/21/18 08:31 Neg mg/dL (Negative) 08/21/18 08:31 Neg mg/dL (Negative) 08/21/18 08:31 Mod (Negative) 08/21/18 08:31 Pos (Negative) 08/21/18 08:31 Neg (Negative) 08/21/18 08:31 < 2.0 mg/dL (<2.0) 08/21/18 08:31 Ur Leukocyte Esterase Neg (Negative) 08/21/18 08:31 18.0 /HPF (0.0-6.0) H 08/21/18 08:31 > 182.0 /HPF (0.0-6.0) 08/21/18 08:31 HIV 1&2 Antibody Rapid Non react (Non React) 08/23/18 14:08 Non react (Non React) 08/23/18 14:08 Active Medications - Current Medications Current Medications: Generic Name Dose Route Start Last Admin Trade Name Freq PRN Reason Stop Dose Admin Acetaminophen 650 mg 08/21/18 22:18 Tylenol PO Q4H PRN Pain MILD(1-3)/Fever >100.5/VELASQUEZ Famotidine 20 mg 08/21/18 23:00 08/23/18 09:31 Pepcid IV 20 mg BID PAUL Administration Hydromorphone HCl 2 mg 08/22/18 13:28 08/23/18 08:44 Dilaudid IV 2 mg Q3H PRN Administration Pain , Severe (7-10) Hydromorphone HCl 0.5 mg 08/23/18 13:15 Dilaudid IV 08/24/18 06:00 Q10M PRN Pain , Severe (7-10) Sodium Chloride 1,000 mls @ 75 mls/hr 08/21/18 23:00 08/22/18 22:11 Nacl 0.9% 1000 Ml IV 75 mls/hr DIRECT PAUL Administration Ceftriaxone Sodium 2 gm in 100 mls @ 200 mls/hr 08/22/18 10:00 08/23/18 09:31 Rocephin/Ns 2 Gm/100 Ml IV 200 mls/hr Q24HR PAUL Administration Protocol Ondansetron HCl 4 mg 08/21/18 22:18 Zofran IV Q8H PRN Nausea And Vomiting Oxycodone/Acetaminophen 2 tab 07/07/19 13:28 Percocet 5/325 PO Q6H PRN Pain, Moderate (4-6) Sodium Chloride 10 ml 08/22/18 10:00 08/23/18 09:31 Sodium Chloride Flush Syringe 10 Ml IV 10 ml BID PAUL Administration Sodium Chloride 10 ml 08/21/18 22:18 Sodium Chloride Flush Syringe 10 Ml IV PRN PRN LINE FLUSH
--- NOTE | 2018-08-23 16:36 | Post Anesthesia Evaluation ---
- Post Anesthesia Evaluation Patient Participated: Yes Airway Patent: Yes Stable Respiratory Function: Yes Nausea/Vomiting: No Temp > 96.8F: Yes Pain Manageable: Yes Adequeate Hydration: Yes Anesthesia Complications: No Other Comments: Initially agitated in PACU but resolved with anxiolytic and re- orientation.
[2018-08-24] MEDS: DILAUDID IV PRN ×6 (00:47→17:54)
[2018-08-24] MEDS: SODIUM CHLORIDE FLUSH SYRINGE 10 ML IV SCH ×2 (01:05→09:36)
[2018-08-24 04:40] LABS: Bacteria,Urine 2+ /HPF (Negative); Bilirubin,Urine NEG (Negative); Blood,Urine MOD (Negative); Color,Urine Red (Yellow); Mucus,Urine FEW /HPF; Urobilinogen,Urine < 2.0 mg/dL (<2.0)
[2018-08-24 04:42] LABS: RBC,Urine > 182.0 /HPF (0.0-6.0)
[2018-08-24 08:45] LABS: Basophils % (Auto) 0.7 % (0.0-1.8); Eosinophils # (Auto) 0.2 K/mm3 (0.0-0.4); Eosinophils % (Auto) 5.2 % (0.0-4.3); Hemoglobin 14.2 gm/dl (11.8-15.2); Lymphocytes # (Auto) 1.2 K/mm3 (1.2-5.4); Mean Corpuscular HGB Conc 33 % (32-34); Mean Corpuscular Volume 89 fl (84-94); Monocytes # (Auto) 0.3 K/mm3 (0.0-0.8); Monocytes % (Auto) 8.4 % (0.0-7.3); Platelet Count 209 K/mm3 (140-440); Red Blood Count 4.85 M/mm3 (3.65-5.03); Red Cell Distribution Width 13.3 % (13.2-15.2)
[2018-08-24 09:09] LABS: BUN/Creatinine Ratio 11; Blood Urea Nitrogen 11 mg/dL (9-20); Calcium 9.7 mg/dL (8.4-10.2); Hemolysis Index 16
[2018-08-24 09:21] LABS: Hematocrit 42.9 % (35.5-45.6)
[2018-08-24] MEDS: PEPCID IV SCH (09:33)
[2018-08-24] MEDS: ROCEPHIN/NS 2 GM/100 ML 2 GM/100 ML BAG IV SCH (09:33)
[2018-08-24 17:26] VITALS: BP 147/86
--- NOTE | 2018-08-24 17:50 | Progress Note ---
Hospitalist Physical - Constitutional Vitals: Temp Pulse Resp BP Pulse Ox 97.3 F L 77 15 147/86 100 08/24/18 16:49 08/24/18 16:49 08/24/18 16:49 08/24/18 16:49 08/24/18 16:49 General appearance: Present: mild distress, severe distress Results - Labs CBC & Chem 7: 08/24/18 08:13 08/24/18 08:13 Labs: Laboratory Last Values WBC 3.0 K/mm3 (4.5-11.0) L 08/24/18 08:13 RBC 4.85 M/mm3 (3.65-5.03) 08/24/18 08:13 Hgb 14.2 gm/dl (11.8-15.2) 08/24/18 08:13 Hct 42.9 % (35.5-45.6) D 08/24/18 08:13 MCV 89 fl (84-94) 08/24/18 08:13 MCH 29 pg (28-32) 08/24/18 08:13 MCHC 33 % (32-34) 08/24/18 08:13 RDW 13.3 % (13.2-15.2) 08/24/18 08:13 Plt Count 209 K/mm3 (140-440) 08/24/18 08:13 Lymph % (Auto) 41.0 % (13.4-35.0) H 08/24/18 08:13 [place] % (Auto) 8.4 % (0.0-7.3) H 08/24/18 08:13 Eos % (Auto) 5.2 % (0.0-4.3) H 08/24/18 08:13 Baso % (Auto) 0.7 % (0.0-1.8) 08/24/18 08:13 Lymph # 1.2 K/mm3 (1.2-5.4) 08/24/18 08:13 [place] # 0.3 K/mm3 (0.0-0.8) 08/24/18 08:13 Eos # 0.2 K/mm3 (0.0-0.4) 08/24/18 08:13 Baso # 0.0 K/mm3 (0.0-0.1) 08/24/18 08:13 Add Manual Diff Complete 08/22/18 05:09 Total Counted 100 08/22/18 05:09 Seg Neutrophils % 44.7 % (40.0-70.0) 08/24/18 08:13 Seg Neuts % (Manual) 53.0 % (40.0-70.0) 08/22/18 05:09 0 % 08/22/18 05:09 39.0 % (13.4-35.0) H 08/22/18 05:09 Reactive Lymphs % (Man) 0 % 08/22/18 05:09 5.0 % (0.0-7.3) 08/22/18 05:09 3.0 % (0.0-4.3) 08/22/18 05:09 0 % (0.0-1.8) 08/22/18 05:09 0 % 08/22/18 05:09 0 % 08/22/18 05:09 0 % 08/22/18 05:09 0 % 08/22/18 05:09 Nucleated RBC % Not Reportable 08/22/18 05:09 Seg Neutrophils # 1.3 K/mm3 (1.8-7.7) L 08/24/18 08:13 Seg Neutrophils # Man 1.3 K/mm3 (1.8-7.7) L 08/22/18 05:09 Band Neutrophils # 0.0 K/mm3 08/22/18 05:09 0.9 K/mm3 (1.2-5.4) L 08/22/18 05:09 Abs React Lymphs (Man) 0.0 K/mm3 08/22/18 05:09 0.1 K/mm3 (0.0-0.8) 08/22/18 05:09 0.1 K/mm3 (0.0-0.4) 08/22/18 05:09 0.0 K/mm3 (0.0-0.1) 08/22/18 05:09 0.0 K/mm3 08/22/18 05:09 0.0 K/mm3 08/22/18 05:09 0.0 K/mm3 08/22/18 05:09 Blast Cells # 0.0 K/mm3 08/22/18 05:09 WBC Morphology Not Reportable 08/22/18 05:09 Hypersegmented Neuts Not Reportable 08/22/18 05:09 Hyposegmented Neuts Not Reportable 08/22/18 05:09 Hypogranular Neuts Not Reportable 08/22/18 05:09 Not Reportable 08/22/18 05:09 Not Reportable 08/22/18 05:09 Not Reportable 08/22/18 05:09 Not Reportable 08/22/18 05:09 Not Reportable 08/22/18 05:09 Not Reportable 08/22/18 05:09 Consistent w auto 08/22/18 05:09 Not Reportable 08/22/18 05:09 Plt Clumps, EDTA Not Reportable 08/22/18 05:09 Not Reportable 08/22/18 05:09 Not Reportable 08/22/18 05:09 Not Reportable 08/22/18 05:09 Plt Morphology Comment Not Reportable 08/22/18 05:09 RBC Morphology Normal 08/22/18 05:09 Dimorphic RBCs Not Reportable 08/22/18 05:09 Not Reportable 08/22/18 05:09 Not Reportable 08/22/18 05:09 Not Reportable 08/22/18 05:09 Not Reportable 08/22/18 05:09 Not Reportable 08/22/18 05:09 Not Reportable 08/22/18 05:09 Not Reportable 08/22/18 05:09 Not Reportable 08/22/18 05:09 Not Reportable 08/22/18 05:09 Not Reportable 08/22/18 05:09 Not Reportable 08/22/18 05:09 Not Reportable 08/22/18 05:09 Not Reportable 08/22/18 05:09 Not Reportable 08/22/18 05:09 Not Reportable 08/22/18 05:09 Not Reportable 08/22/18 05:09 Not Reportable 08/22/18 05:09 Not Reportable 08/22/18 05:09 Not Reportable 08/22/18 05:09 Acanthocytes (Spur) Not Reportable 08/22/18 05:09 Rouleaux Not Reportable 08/22/18 05:09 Not Reportable 08/22/18 05:09 Not Reportable 08/22/18 05:09 Not Reportable 08/22/18 05:09 Negative (Negtaive) 08/23/18 14:08 Not Reportable 08/22/18 05:09 Hem Pathologist Commnt No 08/22/18 05:09 Sodium 138 mmol/L (137-145) 08/24/18 08:13 Potassium 3.7 mmol/L (3.6-5.0) 08/24/18 08:13 Chloride 98.3 mmol/L (98-107) 08/24/18 08:13 Carbon Dioxide 24 mmol/L (22-30) 08/24/18 08:13 19 mmol/L 08/24/18 08:13 BUN 11 mg/dL (9-20) 08/24/18 08:13 1.0 mg/dL (0.8-1.5) 08/24/18 08:13 Estimated GFR > 60 ml/min 08/24/18 08:13 11 % 08/24/18 08:13 Glucose 92 mg/dL (75-100) 08/24/18 08:13 4.2 % (4-6) 08/21/18 08:36 Calcium 9.7 mg/dL (8.4-10.2) 08/24/18 08:13 0.40 mg/dL (0.1-1.2) 08/22/18 05:09 AST 144 units/L (5-40) H 08/22/18 05:09 ALT 109 units/L (7-56) H 08/22/18 05:09 140 units/L (35-129) H 08/22/18 05:09 6.2 g/dL (6.3-8.2) L 08/22/18 05:09 3.9 g/dL (3.9-5) 08/22/18 05:09 1.7 % 08/22/18 05:09 20 units/L (13-60) 08/21/18 08:36 Red (Yellow) 08/23/18 03:45 Slightly-cloudy (Clear) 08/23/18 03:45 7.0 (5.0-7.0) 08/23/18 03:45 Ur Specific [place] 1.008 (1.003-1.030) 08/23/18 03:45 100 mg/dl mg/dL (Negative) 08/23/18 03:45 50 mg/dL (Negative) 08/23/18 03:45 Neg mg/dL (Negative) 08/23/18 03:45 Mod (Negative) 08/23/18 03:45 Neg (Negative) 08/23/18 03:45 Neg (Negative) 08/23/18 03:45 < 2.0 mg/dL (<2.0) 08/23/18 03:45 Ur Leukocyte Esterase Neg (Negative) 08/23/18 03:45 20.0 /HPF (0.0-6.0) H 08/23/18 03:45 > 182.0 /HPF (0.0-6.0) 08/23/18 03:45 U Epithel Cells (Auto) 1.0 /HPF (0-13.0) 08/23/18 03:45 2+ /HPF (Negative) 08/23/18 03:45 Few /HPF 08/23/18 03:45 HIV 1&2 Antibody Rapid Non react (Non React) 08/23/18 14:08 Non react (Non React) 08/23/18 14:08 Active Medications - Current Medications Current Medications: Generic Name Dose Route Start Last Admin Trade Name Freq PRN Reason Stop Dose Admin Acetaminophen 650 mg 08/21/18 22:18 Tylenol PO Q4H PRN Pain MILD(1-3)/Fever >100.5/VELASQUEZ Famotidine 20 mg 08/21/18 23:00 08/24/18 09:33 Pepcid IV 20 mg BID PAUL Administration Hydromorphone HCl 2 mg 08/22/18 13:28 08/24/18 14:46 Dilaudid IV 2 mg Q3H PRN Administration Pain , Severe (7-10) Ceftriaxone Sodium 2 gm in 100 mls @ 200 mls/hr 08/22/18 10:00 08/24/18 09:33 Rocephin/Ns 2 Gm/100 Ml IV 200 mls/hr Q24HR PAUL Administration Protocol Ondansetron HCl 4 mg 08/21/18 22:18 Zofran IV Q8H PRN Nausea And Vomiting Oxycodone/Acetaminophen 2 tab 08/22/18 13:28 08/23/18 18:29 Percocet 5/325 PO 2 tab Q6H PRN Administration Pain, Moderate (4-6) Sodium Chloride 10 ml 08/22/18 10:00 08/24/18 09:36 Sodium Chloride Flush Syringe 10 Ml IV 10 ml BID PAUL Administration Sodium Chloride 10 ml 08/21/18 22:18 Sodium Chloride Flush Syringe 10 Ml IV PRN PRN LINE FLUSH
--- NOTE | 2018-08-24 19:33 | Discharge Summary ---
Providers - Providers Date of Admission: 08/22/18 11:27 Attending physician: KEVIN HERRERA MD 08/21/18 22:18 Consult to Physician [CONS] Routine Comment: Consulting Provider: ESMER AVILA Physician Instructions: Reason For Exam: Epididymitis [facility] Condition: Stable Hospital course: 32-year-old man who presents with acute testicular pain and hematuria Testicular pain/hematuria CT abdomen and pelvis is negative, Testicular ultrasound only shows a small extratesticular cyst on the right, the cyst has smooth margins it is anechoic with no internal blood flow. Testicular blood flow is intact -Urology consult appreciated, cysto was negative, will send another urine sample today UTI was ruled out -it was believed that patient was intentionally injuring his own urethra in order to obtain pain meds, -cysto was normal and only showed an area of stricture, but otherwise normal Pain med seeking behavior/malingering -he was counseled for greater than 17 minutes - Disposition: TO HOME OR SELFCARE Time spent for discharge: 33 mins Core Measure Documentation - Palliative Care Palliative Care/ Comfort Measures: Not Applicable - Core Measures Any of the following diagnoses?: none Exam - Physical Exam Narrative exam: General.: Appears well, no distress, nontoxic HEENT: Moist mucous membranes, extraocular muscles intact, no lymphadenopathy Neck: supple Cardiac: S1-S2 heard Lungs: clear to auscultation bilaterally Abdomen: soft , nontender, nondistended, bowel sounds positive Extremities: no edema clubbing or cyanosis Skin: no rash or lesions Neurologic: no gross focal deficits Psych: calm, and cooperative - Constitutional Vitals: Temp Pulse Resp BP Pulse Ox 97.3 F L 77 16 147/86 100 08/24/18 16:49 08/24/18 16:49 08/24/18 18:24 08/24/18 16:49 08/24/18 16:49 Plan Follow up with: ANGELIQUE LAUREN MD [Primary Care Provider] - 3-5 Days Prescriptions: Acetaminophen [Acetaminophen TAB] 650 mg PO Q4H PRN #60 tablet PRN Reason: Pain MILD(1-3)/Fever >100.5/VELASQUEZ
== END 2018-08-24 20:00 | disposition home or self-care (01) | DRG 696 ==
LOC: ED 08:14 → 3A 11:32 → OBSVTOIN 08-22 11:27
PROVIDERS: ADMIT Internal Medicine; ATTEND Internal Medicine
PROC: 0TJB8ZZ Inspection of Bladder, Via Natural or Artificial Opening Endoscopic (ICD-10-PCS; principal; 2018-08-23)
PROC: BT141ZZ Fluoroscopy of Kidneys, Ureters and Bladder using Low Osmolar Contrast (ICD-10-PCS; 2018-08-23)
DX: R31.9 Hematuria, unspecified (principal); F17.200 Nicotine dependence, unspecified, uncomplicated; N50.811 Right testicular pain; N44.2 Benign cyst of testis; N35.919 Unspecified urethral stricture, male, unspecified site; F12.90 Cannabis use, unspecified, uncomplicated; Z82.49 Family history of ischemic heart disease and other diseases of the circulatory system; Z76.5 Malingerer [conscious simulation]; Z65.8 Other specified problems related to psychosocial circumstances
CPT/HCPCS: 36415; 74177; 74420; 80048; 80053; 81001; 83036; 83690; 85007; 85025; 85660; 87086; 87591; 87806; 88112; 93975; G0378; A4217; C1758; J0696; J1170; J1885; J2250; J2270; J2405; J2704; J3010; J7030; Q9967

== ENCOUNTER 2018-09-03 08:25 | Emergency (ER) | payer SELFPAY ==
[2018-09-03 08:33] VITALS: BP 125/72
[2018-09-03] MEDS ORDERED: PEPCID IV ONE (09:02)
[2018-09-03] MEDS ORDERED: ZOFRAN IV ONE (09:02)
[2018-09-03] MEDS ORDERED: TORADOL IV ONE (09:02)
[2018-09-03 09:09] LABS: Bacteria,Urine 1+ /HPF (Negative); Bilirubin,Urine NEG (Negative); Blood,Urine MOD (Negative); Color,Urine Red (Yellow); Urobilinogen,Urine < 2.0 mg/dL (<2.0)
[2018-09-03 09:11] LABS: RBC,Urine > 182.0 /HPF (0.0-6.0)
--- NOTE | 2018-09-03 09:53 | Emergency Department Report ---
ED Abdominal Pain HPI - General Chief Complaint: Abdominal Pain Stated Complaint: BLOOD URNIE/ABDOMINAL PAIN Time Seen by Provider: 09/03/18 08:51 Source: patient Mode of arrival: Ambulatory Limitations: No Limitations - History of Present Illness Initial Comments: Patient is a 32-year-old male who is presenting for the second time this month with hematuria. Patient states that he has left-sided flank pain that is radiating into the groin. Patient states that for the last 2 days he's noticed blood in his urine. The patient's last admission on 08/21/2018 show that the patient had a negative CT for obstructive uropathy he also had a negative ultrasound of the testicles at that time. Was unclear where the source of the hematuria was coming from. Patient was seen by urology and had a cystogram which also was negative. There are several notes in the chart stating that the patient may be drug seeking and possibly causing some injury to the penis causing his hematuria. Patient was discharged. Patient at this time states that pain is a 10 out of 10 in severity. This is located in the suprapubic region. Patient states there is no actual pain and touching the testicles but he does have radiating pain into the scrotum. Some mild nausea without vomiting. Severity scale (0 -10): 7 - Related Data Previous Rx's Medication Instructions Recorded Last Taken Type Acetaminophen [Acetaminophen TAB] 650 mg PO Q4H PRN #60 tablet 08/24/18 Unknown Rx Allergies Allergy/AdvReac Type Severity Reaction Status Date / Time NSAIDS (Non-Steroidal Allergy Swelling Verified 09/03/18 09:43 Anti-Inflamma ED Review of Systems ROS: Stated complaint: BLOOD URNIE/ABDOMINAL PAIN Other details as noted in HPI Comment: All other systems reviewed and negative ED Past Medical Hx - Past Medical History Previous Medical History?: No Hx Hypertension: No Hx Heart Attack/AMI: No Hx Liver Disease: No Hx Renal Disease: No Hx Seizures: No - Surgical History Past Surgical History?: No - Social History Smoking Status: Never Smoker Substance Use Type: None - Medications Home Medications: Home Medications Medication Instructions Recorded Confirmed Last Taken Type Acetaminophen [Acetaminophen TAB] 650 mg PO Q4H PRN #60 tablet 08/24/18 Unknown Rx ED Physical Exam - General Limitations: No Limitations General appearance: alert, in distress - Head Head exam: Present: atraumatic, normocephalic - Eye Eye exam: Present: normal appearance - ENT ENT exam: Present: mucous membranes moist - Neck Neck exam: Present: normal inspection - Respiratory Respiratory exam: Present: normal lung sounds bilaterally. Absent: respiratory distress, wheezes, rales, rhonchi - Cardiovascular Cardiovascular Exam: Present: regular rate, normal rhythm. Absent: systolic murmur, diastolic murmur, rubs, gallop - GI/Abdominal GI/Abdominal exam: Present: soft, normal bowel sounds. Absent: distended, tenderness, guarding, rebound - Rectal Rectal exam: Present: deferred - Extremities Exam Extremities exam: Present: normal inspection - Back Exam Back exam: Present: normal inspection - Neurological Exam Neurological exam: Present: alert, oriented X3 - Psychiatric Psychiatric exam: Present: normal affect, normal mood - Skin Skin exam: Present: warm, dry, intact, normal color. Absent: rash ED Course Vital Signs 09/03/18 08:31 Temperature 98.2 F Pulse Rate 83 Respiratory 20 Rate Blood Pressure 125/72 [Left] O2 Sat by Pulse 100 Oximetry ED Medical Decision Making - Lab Data Lab Results 09/03/18 Range/Units 08:40 Urine Color Red (Yellow) Urine Turbidity Clear (Clear) Urine pH 7.0 (5.0-7.0) Ur Specific [place] 1.008 (1.003-1.030) Urine Protein 100 mg/dl (Negative) mg/dL Urine Glucose (UA) 50 (Negative) mg/dL Urine Ketones Tr (Negative) mg/dL Urine Blood Mod (Negative) Urine Nitrite Pos (Negative) Urine Bilirubin Neg (Negative) Urine Urobilinogen < 2.0 (<2.0) mg/dL Ur Leukocyte Esterase Neg (Negative) Urine WBC (Auto) 24.0 H (0.0-6.0) /HPF Urine RBC (Auto) > 182.0 (0.0-6.0) /HPF Urine Bacteria (Auto) 1+ (Negative) /HPF - Medical Decision Making Patient is a 32-year-old asthmatic male who is complaining of lower abdominal pain. Patient has hematuria. The patient was offered Toradol initially for pain which she declined. Because of the concerns on his last admission regarding possible drug-seeking patients not given narcotics initially until his objective studies can be obtained. Patient was unhappy with this and decided to leave AGAINST MEDICAL ADVICE. Did have a conversation with the patient stating that R objective here was to see if the patient had some progression of his disease process however the patient was more concerned with pain control. Patient has refused to medication will give him for pain at this time. Critical care attestation.: If time is entered above; I have spent that time in minutes in the direct care of this critically ill patient, excluding procedure time. ED Disposition Clinical Impression: Intractable abdominal pain Disposition: DC-07 LEFT AGAINST MED ADVICE Is pt being admited?: No Does the pt Need Aspirin: No Condition: Stable
[2018-09-03 10:02] LABS: Basophils % (Auto) 1.2 % (0.0-1.8); Eosinophils # (Auto) 0.2 K/mm3 (0.0-0.4); Eosinophils % (Auto) 7.1 % (0.0-4.3); Hematocrit 39.2 % (35.5-45.6); Hemoglobin 12.9 gm/dl (11.8-15.2); Lymphocytes # (Auto) 1.3 K/mm3 (1.2-5.4); Lymphocytes % (Auto) 40.5 % (13.4-35.0); Mean Corpuscular HGB Conc 33 % (32-34); Mean Corpuscular Hemoglobin 29 pg (28-32); Mean Corpuscular Volume 89 fl (84-94); Monocytes # (Auto) 0.2 K/mm3 (0.0-0.8); Platelet Count 282 K/mm3 (140-440); Red Cell Distribution Width 13.2 % (13.2-15.2)
[2018-09-03 10:16] LABS: BUN/Creatinine Ratio 6; Blood Urea Nitrogen 7 mg/dL (9-20); Calcium 9.4 mg/dL (8.4-10.2)
[2018-09-03 10:17] LABS: Hemolysis Index 12
== END 2018-09-03 09:45 | disposition left against medical advice (07) ==
LOC: ED 08:25
DX: R10.30 Lower abdominal pain, unspecified (principal)
CPT/HCPCS: 36415; 80048; 81001; 85025; 87086; 96374; 96375; 99283; J2405; J1885

== ENCOUNTER 2019-02-02 23:02 | Emergency (ER) | payer SELFPAY ==
[2019-02-03 00:52] LABS: Basophils % (Auto) 1.2 % (0.0-1.8); Eosinophils # (Auto) 0.1 K/mm3 (0.0-0.4); Eosinophils % (Auto) 3.3 % (0.0-4.3); Hematocrit 38.2 % (35.5-45.6); Hemoglobin 12.8 gm/dl (11.8-15.2); Lymphocytes # (Auto) 1.1 K/mm3 (1.2-5.4); Lymphocytes % (Auto) 38.9 % (13.4-35.0); Mean Corpuscular HGB Conc 34 % (32-34); Mean Corpuscular Volume 92 fl (84-94); Monocytes # (Auto) 0.3 K/mm3 (0.0-0.8); Platelet Count 216 K/mm3 (140-440); Red Blood Count 4.16 M/mm3 (3.65-5.03)
[2019-02-03 01:13] LABS: BUN/Creatinine Ratio 10; Blood Urea Nitrogen 10 mg/dL (9-20); Calcium 9.5 mg/dL (8.4-10.2); Hemolysis Index 5
[2019-02-03] MEDS ORDERED: ONDANSETRON 4 MG/2 ML INJ IV ONE (01:45)
[2019-02-03] MEDS ORDERED: HYDROmorphone 1 MG/1 ML INJ IV ONE ×3 (01:45→04:16)
--- NOTE | 2019-02-03 01:49 | Ultrasound Report ---
Scrotal ultrasound INDICATION: Right testicular pain FINDINGS: The right testis measures 3.2 x 2.8 x 2 cm. It shows homogeneous echogenicity without intra testicular mass. There is good arterial flow to the right testis with no evidence of torsion. Epididy mal head is unremarkable. In the area of pain there is a small 7 x 5 x 5 mm cystic structure which ma y represent focally dilated duct. The left testis measures 3.5 x 2.5 x 1.7 cm and shows homogeneous e chogenicity as the without intra or extratesticular mass. There is no left-sided varicocele. There is no hydrocele on either side. IMPRESSION: There is small focal area of epididymitis on the right. No testicular mass or torsion. No hydrocele seen. Signer Name: eLwis Flowers MD Signed: 02/03/2019 1:44 AM Workstation Name: [id number]
[2019-02-03] MEDS ORDERED: AZITHROMYCIN 250 MG TAB PO ONE (01:52)
--- NOTE | 2019-02-03 01:53 | Emergency Department Report ---
ED Male HPI - General Chief complaint: Urogenital-Male Stated complaint: ABD PAIN; BLOOD IN URINE Time Seen by Provider: 02/03/19 01:36 Source: patient, old records reviewed Mode of arrival: Ambulatory Limitations: No Limitations - History of Present Illness Initial comments: 33 yo male presents to the hospital complaining of sudden onset of right te sticular pain about 10:30 PM. Patient states he had sudden onset of right-sided testicular pain and it fell down to the ground. He is also having constant suprapubic pain. After pain onset patient had the sensation urinate and had grossly bloody. No n/v, trauma, or fever. Pt states 2 weeks ago he had an orgasm while masturbating but did not ejaculate. he has not had sex in 6 months because his girlfriend is out of town. - Related Data Previous Rx's Medication Instructions Recorded Last Taken Type Acetaminophen [Acetaminophen TAB] 650 mg PO Q4H PRN #60 tablet 08/24/18 Unknown Rx HYDROcodone/APAP 5-325 [[place] 1 each PO Q6HR PRN #15 tablet 02/03/19 Unknown Rx 5/325] Promethazine [Phenergan] 25 mg PO Q6HR PRN #15 tab 02/03/19 Unknown Rx levoFLOXacin [Levaquin] 750 mg PO QDAY #7 tablet 02/03/19 Unknown Rx Allergies Allergy/AdvReac Type Severity Reaction Status Date / Time NSAIDS (Non-Steroidal Allergy Swelling Verified 09/03/18 09:43 Anti-Inflamma ED Review of Systems ROS: Stated complaint: ABD PAIN; BLOOD IN URINE Other details as noted in HPI Comment: All other systems reviewed and negative ED Past Medical Hx - Past Medical History Previous Medical History?: No Hx Hypertension: No Hx Heart Attack/AMI: No Hx Liver Disease: No Hx Renal Disease: No Hx Seizures: No - Surgical History Past Surgical History?: No - Social History Smoking Status: Never Smoker Substance Use Type: None - Medications Home Medications: Home Medications Medication Instructions Recorded Confirmed Last Taken Type Acetaminophen [Acetaminophen TAB] 650 mg PO Q4H PRN #60 tablet 08/24/18 Unknown Rx HYDROcodone/APAP 5-325 [[place] 1 each PO Q6HR PRN #15 tablet 02/03/19 Unknown Rx 5/325] Promethazine [Phenergan] 25 mg PO Q6HR PRN #15 tab 02/03/19 Unknown Rx levoFLOXacin [Levaquin] 750 mg PO QDAY #7 tablet 02/03/19 Unknown Rx ED Physical Exam - General Limitations: No Limitations - Other Other exam information: General: No acute distress Head: Atraumatic Eyes: normal appearance ENT: Moist mucous membranes Neck: Normal appearance, no midline tenderness Chest: Clear to auscultation bilaterally CV: Regular rate and rhythm Abdomen: Soft, normal bowel sounds, mild suprapubic tenderness, nondistended, no rebound or guarding : Incisors, no penile discharge, right testicular epididymis tenderness greater than left testicular tenderness. Gross hematuria Back: Normal inspection Extremity: Normal inspection infection, full range of motion Neuro: Alert O x 3, no facial asymmetry, speech clear, no gross motor sensory deficit Psych: Appropriate behavior Skin: No rash ED Course Vital Signs 02/02/19 23:40 Temperature 98.2 F Pulse Rate 93 H Respiratory 20 Rate Blood Pressure 132/58 [Right] O2 Sat by Pulse 99 Oximetry ED Medical Decision Making - Lab Data Result diagrams: 02/03/19 00:41 02/03/19 00:41 Lab Results 02/03/19 02/03/19 02/03/19 Range/Units 00:41 00:41 01:40 WBC 2.9 L (4.5-11.0) K/mm3 RBC 4.16 (3.65-5.03) M/mm3 Hgb 12.8 (11.8-15.2) gm/dl Hct 38.2 (35.5-45.6) % MCV 92 (84-94) fl MCH 31 (28-32) pg MCHC 34 (32-34) % RDW 14.0 (13.2-15.2) % Plt Count 216 (140-440) K/mm3 Lymph % (Auto) 38.9 H (13.4-35.0) % [place] % (Auto) 9.0 H (0.0-7.3) % Eos % (Auto) 3.3 (0.0-4.3) % Baso % (Auto) 1.2 (0.0-1.8) % Lymph # 1.1 L (1.2-5.4) K/mm3 [place] # 0.3 (0.0-0.8) K/mm3 Eos # 0.1 (0.0-0.4) K/mm3 Baso # 0.0 (0.0-0.1) K/mm3 Seg Neutrophils % 47.6 (40.0-70.0) % Seg Neutrophils # 1.4 L (1.8-7.7) K/mm3 Sodium 139 (137-145) mmol/L Potassium 4.1 (3.6-5.0) mmol/L Chloride 104.8 (98-107) mmol/L Carbon Dioxide 22 (22-30) mmol/L Anion Gap 16 mmol/L BUN 10 (9-20) mg/dL Creatinine 1.0 (0.8-1.5) mg/dL Estimated GFR > 60 ml/min BUN/Creatinine Ratio 10 % Glucose 91 (75-100) mg/dL Calcium 9.5 (8.4-10.2) mg/dL Urine Color Red (Yellow) Urine Turbidity Slightly-cloudy (Clear) Urine pH 6.0 (5.0-7.0) Ur Specific [place] 1.008 (1.003-1.030) Urine Protein 30 mg/dl (Negative) mg/dL Urine Glucose (UA) Neg (Negative) mg/dL Urine Ketones Neg (Negative) mg/dL Urine Blood Lg (Negative) Urine Nitrite Neg (Negative) Urine Bilirubin Neg (Negative) Urine Urobilinogen < 2.0 (<2.0) mg/dL Ur Leukocyte Esterase Neg (Negative) Urine WBC (Auto) 50.0 H (0.0-6.0) /HPF Urine RBC (Auto) > 120.0 (0.0-6.0) /HPF U Epithel Cells (Auto) 6.0 (0-13.0) /HPF Urine Bacteria (Auto) 3+ (Negative) /HPF Urine Mucus 3+ /HPF - Radiology Data Radiology results: report reviewed FINDINGS: The right testis measures 3.2 x 2.8 x 2 cm. It shows homogeneous echogenicity without intratesticular mass. There is good arterial flow to the right testis with no evidence of torsion. Epididymal head is unremarkable. In the area of pain there is a small 7 x 5 x 5 mm cystic structure which may represent focally dilated duct. The left testis measures 3.5 x 2.5 x 1.7 cm and shows homogeneous echogenicity as the without intra or extratesticular mass. There is no left-sided varicocele. There is no hydrocele on either side. IMPRESSION: There is small focal area of epididymitis on the right. No testicular mass or torsion. No hydrocele seen. CT of the abdomen and pelvis without contrast INDICATION: Right testicular pain COMPARISON: 08/21/2018 FINDINGS: Lung bases are clear. The liver, spleen, pancreas, adrenal glands and kidneys show no significant abnormalities with a small hepatic cyst incidentally noted. Gallbladder has been removed. No biliary tree dilation. No fluid or adenopathy in the upper abdomen. CT of the pelvis shows no ureteral stone. No stone fragments seen in the bladder. Prostate is not enlarged. No pelvic or inguinal adenopathy. Appendix is seen and is normal. There is no inguinal her jessica or bowel obstruction. No significant skeletal lesion. IMPRESSION: Negative study. - Medical Decision Making pt required multiple doses of pain medication for control. Testicular ultrasound suggestive of a right-sided epididymitis. Positive UTI with hemorrhagic cystitis given UA result. Patient was treated with Rocephin, azithromycin, and will be discharged on Levaquin and pain medication. Previous chart reviewed and pt was admitted here in August with same presentation. As per D/c summary note Testicular pain/hematuria CT abdomen and pelvis is negative, Testicular ultrasound only shows a small extratesticular cyst on the right, the cyst has smooth margins it is anechoic with no internal blood flow. Testicular blood flow is intact -Urology consult appreciated, cysto was negative, will send another urine sample today UTI was ruled out -it was believed that patient was intentionally injuring his own urethra in order to obtain pain meds, -cysto was normal and only showed an area of stricture, but otherwise normal HIV and GC/CHL testing also negative at that time [place] drug monitoring site reviewed pt received tramadol script 08/29 but had not had any other narcotic meds filled in [place]. Urology follow up marcie be encouraged - Differential Diagnosis testicular torsion, epididymitis, urethritis, hemorrhagic cystitis, renal c Critical Care Time: No Critical care attestation.: If time is entered above; I have spent that time in minutes in the direct care of this critically ill patient, excluding procedure time. ED Disposition Clinical Impression: Testicular pain, right, Acute epididymitis, UTI (urinary tract infection), Hematuria Disposition: OP ADMIT IP TO THIS HOSP Is pt being admited?: No Does the pt Need Aspirin: No Condition: Stable Instructions: Epididymitis (ED), Acute Hematuria (ED), Urinary Tract Infection in Men (ED) Additional Instructions: Take the medication as prescribed. Follow-up with your doctor or doctor/clinic provided. Return if symptoms worsen as indicated by your discharge instructions. Prescriptions: levoFLOXacin [Levaquin] 750 mg PO QDAY #7 tablet HYDROcodone/APAP 5-325 [[place] 5/325] 1 each PO Q6HR PRN #15 tablet PRN Reason: Pain Promethazine [Phenergan] 25 mg PO Q6HR PRN #15 tab PRN Reason: Nausea Referrals: PRIMARY CARE, [Primary Care Provider] - 3-5 Days JOSE LUIS WORLEY MD [Staff Physician] - 3-5 Days (urology ) ALEJO LEONG MD [Staff Physician] - 3-5 Days Forms: STI Treatment and Prevention Time of Disposition: 04:28
[2019-02-03 02:36] LABS: Bacteria,Urine 3+ /HPF (Negative); Bilirubin,Urine NEG (Negative); Blood,Urine LG (Negative); Color,Urine Red (Yellow); Mucus,Urine 3+ /HPF; Urobilinogen,Urine < 2.0 mg/dL (<2.0)
[2019-02-03 02:41] LABS: RBC,Urine > 120.0 /HPF (0.0-6.0)
--- NOTE | 2019-02-03 04:07 | Cat Scan Report ---
CT of the abdomen and pelvis without contrast INDICATION: Right testicular pain COMPARISON: 08/21/2018 FINDINGS: Lung bases are clear. The liver, spleen, pancreas, adrenal glands and kidneys show no signi ficant abnormalities with a small hepatic cyst incidentally noted. Gallbladder has been removed. No b iliary tree dilation. No fluid or adenopathy in the upper abdomen. CT of the pelvis shows no ureteral stone. No stone fragments seen in the bladder. Prostate is not enl arged. No pelvic or inguinal adenopathy. Appendix is seen and is normal. There is no inguinal hernia or bowel obstruction. No significant skeletal lesion. IMPRESSION: Negative study. Automated exposure control was utilized to diminish radiation dose. Signer Name: Lewis Flowers MD Signed: 02/03/2019 4:02 AM Workstation Name: [id number]
[2019-02-03 05:11] VITALS: BP 120/58
== END 2019-02-03 05:11 | disposition admitted as inpatient to this hospital (09) ==
LOC: ED 23:02
DX: N45.1 Epididymitis (principal); N39.0 Urinary tract infection, site not specified; R31.9 Hematuria, unspecified; Z88.6 Allergy status to analgesic agent; Z79.899 Other long term (current) drug therapy
CPT/HCPCS: 36415; 74176; 80048; 81001; 85025; 87086; 87591; 93975; 96365; 96375; 96376; 99284; J0696; J1170; J2405

== ENCOUNTER 2019-02-10 08:44 | Emergency (ER) | payer SELFPAY ==
[2019-02-10] MEDS ORDERED: LORazepam 2 MG/ML VIAL IV ONE (10:45)
[2019-02-10] MEDS ORDERED: SODIUM CHLORIDE 0.9% 1000 ML 1,000 ML IV ONE (10:45)
--- NOTE | 2019-02-10 11:01 | Ultrasound Report ---
ULTRASOUND TESTICULAR DOPPLER COMPLETE HISTORY: Testicular torsion TECHNIQUE: Grayscale ultrasound with color and spectral Doppler interrogation. COMPARISON: 02/03/2019. FINDINGS: A limited incomplete testicular ultrasound is presented. The patient went into medical distress in th e ultrasound room and a code was called. The patient was taken back to the ER. The right testicle measures 3.5 x 1.2 x 2.9 cm. No mass, cyst or calcifications. Color and spectral D oppler waveforms demonstrate flow to the right testicle. The left testicle was only partially imaged but appears normal size, contour and echotexture. No foca l left testicular lesion is suggested. Color Doppler imaging demonstrates flow to the left testicle b ut spectral Doppler waveforms could not be obtained. The epididymides are unremarkable. No hydrocele or varicocele is appreciated. IMPRESSION: Incomplete exam of the left testicle. The right testicle is within normal limits and demonstrates arterial flow on spectral Doppler wavefor ms. The left testicle demonstrates flow on color Doppler imaging. There is no obvious torsion. Signer Name: Marquise Menezes Jr, MD Signed: 02/10/2019 10:56 AM Workstation Name: [id number]
--- NOTE | 2019-02-10 11:46 | Emergency Department Report ---
ED General Adult HPI - General Chief complaint: Urogenital-Male Stated complaint: RT SIDE TESTICLE SWELLING/VOMIT Time Seen by Provider: 02/10/19 10:44 Source: patient Mode of arrival: Ambulatory Limitations: No Limitations - History of Present Illness Initial comments: 33-year-old male was sent to have a testicular ultrasound from the waiting room. Apparently he neglected to tell the triage nurse that he had already had a testicular ultrasound less than a week ago. Apparently he had presented for similar complaints. He was found to have a slight degree of epididymitis on the previous ultrasound. His compliance with antibiotics is uncertain. He complains to me of recurrent testicular pain. The patient had an episode of acute anxiety and hyperventilation in the ultrasound suite. A code red was called. When I arrived, he was quite anxious. His vital signs were otherwise stable but he was hyperventilating. He was sent to the emergency department for further evaluation. I asked the patient concerning his past medical history. He did collected to tell me again that he had been here for similar complaints. He had an extensive workup and neurology consultation. He states that he does not take any daily medicines. He states he's never been admitted to the hospital overnight. He denies substance abuse. Previous medical decision making 02/03/2019 Testicular pain/hematuria CT abdomen and pelvis is negative, Testicular ultrasound only shows a small extratesticular cyst on the right, the cyst has smooth margins it is anechoic with no internal blood flow. Testicular blood flow is intact -Urology consult appreciated, cysto was negative, will send another urine sample today UTI was ruled out -it was believed that patient was intentionally injuring his own urethra in order to obtain pain meds, -cysto was normal and only showed an area of stricture, but otherwise normal HIV and GC/CHL testing also negative at that time de prescription drug monitoring site reviewed pt received tramadol script 08/29 but had not had any other narcotic meds filled in [place]. -: Gradual, days(s) Location: right (testicle) Severity scale (0 -10): 10 Quality: aching Consistency: constant Worsens with: none Associated Symptoms: denies other symptoms, shortness of breath (acute shortness of breath in the ultrasound suite as above), other (states felt warm) Treatments Prior to Arrival: other (ceftriaxone) - Related Data Previous Rx's Medication Instructions Recorded Last Taken Type Acetaminophen [Acetaminophen TAB] 650 mg PO Q4H PRN #60 tablet 08/24/18 Unknown Rx HYDROcodone/APAP 5-325 [[place] 1 each PO Q6HR PRN #15 tablet 02/03/19 Unknown Rx 5/325] Promethazine [Phenergan] 25 mg PO Q6HR PRN #15 tab 02/03/19 Unknown Rx levoFLOXacin [Levaquin] 750 mg PO QDAY #7 tablet 02/03/19 Unknown Rx Sulfamethoxazole/Trimethoprim 1 each PO BID #20 tablet 02/10/19 Unknown Rx [Bactrim DS TAB] traMADoL [Ultram 50 MG tab] 50 mg PO Q6HR PRN #10 tablet 02/10/19 Unknown Rx Allergies Allergy/AdvReac Type Severity Reaction Status Date / Time NSAIDS (Non-Steroidal Allergy Swelling Verified 09/03/18 09:43 Anti-Inflamma ED Review of Systems ROS: Stated complaint: RT SIDE TESTICLE SWELLING/VOMIT Other details as noted in HPI Constitutional: fever (question). denies: chills Eyes: denies: eye pain, eye discharge, vision change ENT: denies: ear pain, throat pain Respiratory: denies: cough, shortness of breath, wheezing Cardiovascular: denies: chest pain, palpitations Endocrine: no symptoms reported Gastrointestinal: denies: abdominal pain, nausea, diarrhea Genitourinary: testicular pain. denies: urgency, dysuria Musculoskeletal: denies: back pain, joint swelling, arthralgia Skin: denies: rash, lesions Neurological: denies: headache, weakness, paresthesias Psychiatric: denies: anxiety, depression Hematological/Lymphatic: denies: easy bleeding, easy bruising ED Past Medical Hx - Past Medical History Previous Medical History?: No Hx Hypertension: No Hx Heart Attack/AMI: No Hx Liver Disease: No Hx Renal Disease: No Hx Seizures: No - Surgical History Past Surgical History?: No - Social History Smoking Status: Never Smoker Substance Use Type: None - Medications Home Medications: Home Medications Medication Instructions Recorded Confirmed Last Taken Type Acetaminophen [Acetaminophen TAB] 650 mg PO Q4H PRN #60 tablet 08/24/18 Unknown Rx HYDROcodone/APAP 5-325 [[place] 1 each PO Q6HR PRN #15 tablet 02/03/19 Unknown Rx 5/325] Promethazine [Phenergan] 25 mg PO Q6HR PRN #15 tab 02/03/19 Unknown Rx levoFLOXacin [Levaquin] 750 mg PO QDAY #7 tablet 02/03/19 Unknown Rx Sulfamethoxazole/Trimethoprim 1 each PO BID #20 tablet 02/10/19 Unknown Rx [Bactrim DS TAB] traMADoL [Ultram 50 MG tab] 50 mg PO Q6HR PRN #10 tablet 02/10/19 Unknown Rx ED Physical Exam - General Limitations: No Limitations General appearance: alert, anxious (hyperventilating) - Head Head exam: Present: atraumatic, normocephalic - Eye Eye exam: Present: normal appearance, PERRL, EOMI. Absent: scleral icterus - ENT ENT exam: Present: mucous membranes moist - Neck Neck exam: Present: normal inspection. Absent: tenderness, meningismus - Respiratory Respiratory exam: Present: normal lung sounds bilaterally, other (tachypnea). Absent: respiratory distress - Cardiovascular Cardiovascular Exam: Present: regular rate, normal rhythm. Absent: systolic murmur, diastolic murmur, rubs, gallop - GI/Abdominal GI/Abdominal exam: Present: soft, normal bowel sounds. Absent: distended, tenderness, guarding, rebound, rigid - Rectal Rectal exam: Present: deferred - exam: Present: testicular tenderness, circumcision, other (no swelling). Absent: urethral discharge, scrotal swelling, vertical testicular lie - Extremities Exam Extremities exam: Present: normal inspection - Back Exam Back exam: Present: normal inspection - Neurological Exam Neurological exam: Present: alert, oriented X3, CN II-XII intact. Absent: motor sensory deficit - Psychiatric Psychiatric exam: Present: normal affect, normal mood - Skin Skin exam: Present: warm, dry, intact, normal color. Absent: rash ED Course Vital Signs 02/10/19 02/10/19 02/10/19 09:15 10:42 10:45 Temperature 98.7 F Pulse Rate 104 H 94 H 82 Respiratory 18 14 14 Rate Blood Pressure 148/102 133/82 Blood Pressure [Right] O2 Sat by Pulse 97 98 Oximetry 02/10/19 02/10/19 02/10/19 10:55 11:00 11:15 Temperature 98.2 F Pulse Rate 90 82 87 Respiratory 12 17 16 Rate Blood Pressure 126/77 126/77 Blood Pressure 123/76 [Right] O2 Sat by Pulse 99 100 Oximetry 02/10/19 11:31 Temperature Pulse Rate 92 H Respiratory 15 Rate Blood Pressure 126/77 Blood Pressure [Right] O2 Sat by Pulse Oximetry - Reevaluation(s) Reevaluation #1: Patient now admits that he was here prior. He states that he took the Levaquin. He refused blood draw times several. He is requesting pain medication. He will be given tramadol and discharge. Review of his prior workup which was extended indicated no emergency medical condition. He has an appointment to follow up with the urologist which she should keep. He will also be referred to [facility]. 02/10/19 13:09 Reevaluation #2: Patient has refused repeat blood work. This was ordered prior to review of his prior medical record. I would've been happy to have this drawn but the patient has refused. His chest x-ray is normal. He received a milligram of Ativan and stopped hyperventilating. His pulse oximetry is normal. His neurological status is normal. Thus, his medical screening is adequate for discharge and consideration of his extensive workup he has recently had and his clinical presentation. He is refused any further testing. He is mentally competent to refuse care. Additionally, I don't think is medically required at this juncture. 02/10/19 13:12 ED Medical Decision Making - Radiology Data Radiology results: report reviewed (repeat testicular scan is normal. There is no mention of epididymitis) Critical care attestation.: If time is entered above; I have spent that time in minutes in the direct care of this critically ill patient, excluding procedure time. ED Disposition Clinical Impression: Testicular pain, right, Acute epididymitis Disposition: TO HOME OR SELFCARE Is pt being admited?: No Does the pt Need Aspirin: No Condition: Stable Instructions: Epididymitis (ED) Additional Instructions: Follow-up with the urologist as previously recommended. Continue antibiotic. Rx for pain. Prescriptions: Sulfamethoxazole/Trimethoprim [Bactrim DS TAB] 1 each PO BID #20 tablet traMADoL [Ultram 50 MG tab] 50 mg PO Q6HR PRN #10 tablet PRN Reason: Pain Referrals: PRIMARY CAREMD [Primary Care Provider] - 3-5 Days [facility] [Provider Group] - 3-5 Days Forms: STI Treatment and Prevention Time of Disposition: 13:14
--- NOTE | 2019-02-10 11:56 | XRay Report ---
CHEST 1 VIEW INDICATION: Dyspnea. COMPARISON: None. FINDINGS: Support devices: None. Heart: Within normal limits. Lungs/Pleura: The lungs are normally expanded and clear. No pleural effusion. No pneumothorax. Additional findings: None. IMPRESSION: 1. No acute findings. Signer Name: Ramu Turk MD Signed: 02/10/2019 11:52 AM Workstation Name: [id number]
[2019-02-10 12:12] VITALS: BP 126/77
[2019-02-10] MEDS ORDERED: traMADol 50 MG TAB PO ONE (13:10)
== END 2019-02-10 13:26 | disposition home or self-care (01) ==
LOC: ED 08:44
DX: N45.1 Epididymitis (principal); Z79.899 Other long term (current) drug therapy; Z88.6 Allergy status to analgesic agent
CPT/HCPCS: 71045; 82962; 93975; 96361; 96374; 99284; J2060; J7030